=== PATIENT | male | born 1970 | race Hispanic/Latino ===

== ENCOUNTER 2019-02-22 19:29 | Emergency (ER) | payer SELFPAY ==
[2019-02-22] MEDS ORDERED: ONDANSETRON HCL 4 MG/2 ML VIAL ONE (19:58)
[2019-02-22 20:10] LABS: BASOPHILS % (AUTO) 0.3 % (0.0-5.0); HEMATOCRIT 40.8 % (42-54); LYMPHOCYTES % (AUTO) 6.8 % (21.0-51.0); MEAN CORPUSCULAR HEMOGLOBIN 30.6 pg (27.0-33.0); MEAN CORPUSCULAR HGB CONC 34.6 g/dL (32.0-36.0); MEAN CORPUSCULAR VOLUME 88.5 fL (79-99); MONOCYTES % (AUTO) 7.9 % (3.0-13.0); PLATELET COUNT (AUTO) 326 K/uL (130-400); RED BLOOD CELL COUNT(AUTO) 4.62 MIL/uL (4.50-6.20); RED CELL DISTRIBUTION WIDTH 13.2 % (11.0-15.5); WHITE BLOOD COUNT (AUTO) 14.9 K/uL (4.8-10.8)
[2019-02-22 20:28] LABS: INR 1.03 (0.85-1.15); PARTIAL THROMBOPLASTIN TIME 29.1 SEC (26.3-35.5); PROTHROMBIN TIME 10.8 SEC (9.6-11.6)
[2019-02-22 20:36] LABS: CARBON DIOXIDE 29 mmol/L (21-32); CHLORIDE 98 mmol/L (101-111); CREATININE 1.1 mg/dL (0.5-1.5); GLOMERULAR FILTR. RATE CALC 75 mL/min (>60); GLUCOSE,RANDOM 121 mg/dL (70-105); POTASSIUM 3.9 mmol/L (3.5-5.1); SODIUM SERUM 136 mmol/L (136-145); UREA NITROGEN, BLOOD 15 mg/dL (7-18)
[2019-02-22 20:40] LABS: ALANINE AMINOTRANSFERASE 25 U/L (12-78); AMYLASE 65 U/L (25-115); ASPARTATE AMINOTRANSFERASE 17 U/L (10-37); BILIRUBIN,TOTAL 0.4 mg/dL (0.2-1.0); LIPASE 108 U/L (114-286); TOTAL PROTEIN, SERUM 8.5 g/dL (6.0-8.3)
[2019-02-22 20:41] LABS: ALCOHOL, BLOOD < 3 mg/dL (0-10)
[2019-02-22] MEDS ORDERED: ACETAMINOPHEN EXTRA STRENGTH 500 MG TABLET ONE (21:19)
[2019-02-22 21:45] LABS: APPEARANCE,URINE Clear (CLEAR); BILIRUBIN,URINE Negative (NEGATIVE); COLOR,URINE Dark Yellow (YELLOW); GLUCOSE, URINE (UA) Negative (NEGATIVE); KETONES,URINE 40 mg/dL (NEGATIVE); LEUKOCYTE ESTERASE ,URINE Negative (NEGATIVE); NITRATE,URINE Negative (NEGATIVE); OCCULT BLOOD,URINE Moderate (NEGATIVE); PH,URINE 6.5 (5.0-8.0); PROTEIN,URINE POS 2+ mg/dL (NEGATIVE)
[2019-02-22 21:55] LABS: AMPHET/METH SCREEN,URINE NEGATIVE (NEGATIVE); BARBITURATE SCREEN, URINE NEGATIVE (NEGATIVE); BENZODIAZEPINES SCREEN,URINE NEGATIVE (NEGATIVE); CANNABINOID SCREEN,URINE NEGATIVE (NEGATIVE); COCAINE SCREEN,URINE NEGATIVE (NEGATIVE); OPIATE SCREEN,URINE NEGATIVE (NEGATIVE); PHENCYCLIDINE SCREEN,URINE NEGATIVE (NEGATIVE)
[2019-02-22 22:12] LABS: WBC,URINE 0-1 /HPF (0-1)
[2019-02-22 22:13] LABS: BACTERIA,URINE Rare /HPF (None Seen); MUCUS,URINE Few LPF (None Seen); SQUAMOUS EPITHELIAL CELL,UR Rare /HPF (0-2)
[2019-02-22 23:36] LABS: HEMATOCRIT 38.4 % (42-54)
[2019-02-23] MEDS ORDERED: LEVOFLOXACIN 500 MG TABLET ONE (00:02)
== END 2019-02-23 00:26 | disposition home or self-care (01) ==
LOC: EDBD 19:29 → EDH 19:29
DX: A09 Infectious gastroenteritis and colitis, unspecified (principal); K92.2 Gastrointestinal hemorrhage, unspecified; I10 Essential (primary) hypertension
CPT/HCPCS: 36415; 71045; 80053; 80305; 81001; 82150; 82270; 83605; 83690; 84484; 85014; 85018; 85025; 85610; 85730; 87040; 87804 ×2; 93005; 96361 ×2; 96374; 99285; G0480; J2405

== ENCOUNTER 2025-05-28 09:38 | Inpatient (IN) | payer BC ==
[~2025-05-28] VITALS: Ht 162.6 cm; Wt 70.3 kg
[2025-05-28 10:11] LABS: IMMATURE GRANULOCYTE ABSOLUTE 0.09 K/uL (0-1); NUCLEATED RED BLOOD CELLS 0.0 % (0.0-0.19); PLATELET COUNT (AUTO) 336 K/uL (130-400); RED BLOOD CELL COUNT(AUTO) 5.47 MIL/uL (4.50-6.20); RED CELL DISTRIBUTION WIDTH 13.6 % (11.0-15.5); WHITE BLOOD COUNT (AUTO) 11.1 K/uL (4.8-10.8)
--- NOTE | 2025-05-28 10:12 | ERN ---
General Chief Complaint: Rectal Bleed Stated Complaint: RECTAL BLEED Time Seen by MD: 09:39 Source: patient History of Present Illness Initial Comments Patient is a 54-year-old gentleman coming in with multiple complaints. Patient has been having lower abdominal discomfort that has noticed bloody stools. He describes the bloody stools as red with mucus on him. Long with this patient states he has been having some discomfort in the lower abdominal region no fever or chills no nausea no vomiting. Allergies: Coded Allergies: No Known Drug Allergies (Unverified Allergy, Unknown, 05/28/25) Past Medical History Past Medical History: Hypertension, SD Past Surgical History: None ROS Dictation CONSTITUTIONAL: No chills, no fever, no weakness, no diaphoresis, no malaise. HEAD/FACE: No signs of trauma. EENT: No eye pain, no blurred vision, no tearing, no double vision, no ear pain, no ear discharge, no nose pain, no nasal congestion, no throat pain, no throat swelling, no mouth pain. RESPIRATORY: No cough, no orthopnea, no SOB, no stridor, no wheezing. CARDIOVASCULAR: No chest pain, no edema, no palpitations, no syncope. GASTROINTESTINAL/ABDOMINAL: No abdominal pain, no constipation, no diarrhea, no nausea, no vomiting. GENITOURINARY: No abnormal discharge, no dysuria, no frequent urination, no hematuria. No complaints of pain in the genitals. MUSCULOSKELETAL: No back pain, no gout, no joint pain, no joint swelling, no muscle pain, no muscle stiffness, no neck pain. INTEGUMENTARY: No change in color, no change in hair/nails, no dryness, no lesion, no lumps, no rash. NEUROLOGICAL/PSYCH: No anxiety, not depressed, no emotional problem, no heada meghan, no numbness, no pre-existing deficit, no history of seizures, no tremors, no weakness. HEMATOLOGIC/LYMPHATIC: Not anemic, no history of blood clots, no apparent bleeding, no bruising, glands not swollen. All Systems Negative, Except as Noted. Physical Exam Physical Exam Dictation VITAL SIGNS: Reviewed. GENERAL APPEARANCE: Alert, oriented x3, no acute distress, obese. HEAD AND FACE: Non-traumatic. EYES: PERRL, pink conjunctivas, eyelid no trauma, anterior chamber clear. EARS: Pinnas intact and no signs of trauma or erythema. Ear canals clear and no discharge. TMs no erythema. NOSE: No discharge, no bleeding. OROPHARYNX: Mouth normal, teeth no caries, tongue pink. Pharynx clear, no erythema. Tonsils no exudates, no abscesses noted. Mucous membrane moist. NECK: Supple, non-tender, no thyromegaly, no masses, no JVD, no bruits. BREAST: Deferred. CHEST: No tenderness, no crepitus, no paradoxical movement, no retractions. LUNGS: Clear, well-ventilated, symmetric, no rales, no wheezing, no rhonchi, no stridor, good breath sounds bilaterally. HEART: Regular rate, regular rhythm, no murmur, no gallops. VASCULAR: No peripheral edema. ABDOMEN: Soft, positive bowel sounds, nondistended, no guarding, nontender, no rebound, no masses no hepatomegaly, no splenomegaly, no Asif's sign, no hernias. RECTAL: Deferred. GENITAL: Deferred. NEUROLOGICAL: Normal speech, gross motor function intact, gross sensory function intact. MUSCULOSKELETAL: Neck nontender, full range of motion, back nontender, full range of motion. EXTREMITIES: Nontender, full range of motion. SKIN: Color pink, dry, no turgor, no rash, no lacerations, no abrasions, no contusions. LYMPHATICS: Deferred. Results Laboratory and Microbiology Lab and Micro Result Laboratory Tests Test 05/28/25 10:00 05/28/25 11:17 05/28/25 12:15 White Blood Count 11.1 K/uL (4.8-10.8) H Red Blood Count 5.47 MIL/uL (4.50-6.20) Hemoglobin 16.5 g/dL (14.0-18.0) Hematocrit 47.2 % (42-54) Mean Corpuscular Volume 86.3 fL (79-99) Mean Corpuscular Hemoglobin 30.2 pg (27.0-33.0) Mean Corpuscular Hemoglobin Concent 35.0 g/dL (32.0-36.0) Red Cell Distribution Width 13.6 % (11.0-15.5) Platelet Count 336 K/uL (130-400) Mean Platelet Volume 10.1 fL (7.5-10.5) Immature Granulocyte % (Auto) 0.8 % (0-1) Neutrophils (%) (Auto) 70.7 % (40.0-77.0) Lymphocytes (%) (Auto) 15.8 % (21.0-51.0) L Monocytes (%) (Auto) 11.7 % (3.0-13.0) Eosinophils (%) (Auto) 0.2 % (0.0-8.0) Basophils (%) (Auto) 0.8 % (0.0-5.0) Neutrophils # (Auto) 7.8 K/uL (1.8-7.7) H Lymphocytes # (Auto) 1.8 K/uL (1.0-4.8) Monocytes # (Auto) 1.3 K/uL (0.1-1.0) H Eosinophils # (Auto) 0.02 K/uL (0.00-0.70) Basophils # (Auto) 0.09 K/uL (0.00-0.20) Absolute Immature Granulocyte (auto 0.09 K/uL (0-1) Nucleated Red Blood Cells 0.0 % (0.0-0.19) Sodium Level 137 mmol/L (136-145) Potassium Level 2.8 mmol/L (3.5-5.1) *L Chloride Level 97 mmol/L (101-111) L Carbon Dioxide Level 28 mmol/L (21-32) Blood Urea Nitrogen 42 mg/dL (7-18) H Creatinine 1.5 mg/dL (0.5-1.3) H Glomerular Filtration Rate Calc 54 mL/min (>90) Random Glucose 117 mg/dL (70-105) H Total Calcium 9.3 mg/dL (8.5-10.1) Magnesium Level 2.80 mg/dL (1.80-2.40) H Total Bilirubin 0.7 mg/dL (0.2-1.0) Aspartate Amino Transf (AST/SGOT) 29 U/L (10-37) Alanine Aminotransferase (ALT/SGPT) 36 U/L (12-78) Alkaline Phosphatase 86 U/L (50-136) Total Creatine Kinase 126 U/L (21-232) Troponin I High Sensitivity 6 ng/L (4-75) Total Protein 8.3 g/dL (6.0-8.3) Albumin 3.2 g/dL (3.5-5.0) L Lipase 513 U/L (16-77) H Urine Color YELLOW (YELLOW) Urine Appearance HAZY (CLEAR) Urine pH 6.0 (5.0-8.0) Urine Specific [place] 1.024 (1.001-1.031) Urine Protein 50 mg/dL (NEGATIVE) H Urine Glucose (UA) NEGATIVE mg/dL (NEGATIVE) Urine Ketones 40 mg/dL (NEGATIVE) H Urine Occult Blood SMALL (NEGATIVE) H Urine Nitrate NEGATIVE (NEGATIVE) Urine Bilirubin NEGATIVE mg/dL (NEGATIVE) Urine Urobilinogen 0.2 mg/dL (0.2-1.0) Urine Leukocyte Esterase NEGATIVE Sho/uL Urine RBC 2-5 /HPF (0-1) H Urine WBC 2-5 /HPF (0-1) H Urine Squamous Epithelial Cells RARE /HPF (0-2) Urine Bacteria RARE /HPF (None Seen) Stool Occult Blood POSITIVE (NEGATIVE) H Labs Reviewed?: Yes EKG/XRAY/US/CT/MRI EKG Comment 05/28/2025 time 9:37 a.m. Ventricular rate [address] wave elevation or depression MDM MDM: Differential diagnosis: Dysentery, gastroenteritis, infectious gastroenteritis Rationale: Tests considered and ordered secondary to shared decision making include: Previous outside records reviewed: Old ER visits. Risk of complication and/or morbidity or mortality of patient management: None Medications-Per medication reconciliation Need for hospitalization: Patient does meet criteria for hospitalization. Need for emergency major/minor surgery: No There are no social concerns with this patient. Prescription drug management Prescriptions will include symptomatic care Patient's prior external medical records from other ER visits were reviewed by me as indicated. Prior testing and results from previous visits were reviewed. Prior tests were taken into account with medical decision making and resource utilization, independent historian/historians were used to obtain complete [facility] history. I independently interpreted the test that were performed, results were reviewed by me and considered findings on radiology if ordered. Medical management and examination interpretation discussions were had by me with other qualified healthcare professionals as indicated for the patient's care. Patient will be admitted under the care of hospitalist group. ED Course Orders Procedure Category Date Status Time Cbc With Differential LAB 05/28/25 Complete 09:39 Comprehensive LAB 05/28/25 Complete Metabolic Panel 09:39 Troponin I High LAB 05/28/25 Complete Sensitivity 09:39 Urinalysis Profile LAB 05/28/25 Complete 09:39 Occult Blood Stool LAB 05/28/25 Complete Single Only 09:39 12 Lead Ekg Tracing- EKG 05/28/25 Complete Technical 09:39 Lactated Ringers PHA 05/28/25 Complete 1000ml (Lactated 10:00 Creatine Kinase, Total LAB 05/28/25 Complete 09:39 Lipase LAB 05/28/25 Complete 09:39 Magnesium LAB 05/28/25 Complete 11:24 Potassium Chloride PHA 05/28/25 Complete 10meq/100ml ([place] 11:30 Potassium Bicarb/Cit PHA 05/28/25 Complete Ac 25meq (K-Lyte Ta 11:30 Current Medications Medications (Trade) Dose Ordered Sig/Christian Route PRN Reason Start Time Stop Time Status Last Admin Dose Admin Lactated Ringer's 1,000 ml @ 0 mls/hr ONCE ONCE IV 05/28/25 10:00 05/28/25 10:01 DC 05/28/25 10:26 Potassium Bicarbonate (K-Lyte Tablet Eff 25 Meq Tablet.eff) 50 meq ONCE ONCE PO 05/28/25 11:30 05/28/25 11:31 DC 05/28/25 11:46 Potassium Chloride 100 ml @ 100 mls/hr ONCE ONCE IV 05/28/25 11:30 05/28/25 12:29 DC 05/28/25 11:46 Vital Signs Date Time Temp Pulse Resp B/P (MAP) Pulse Ox O2 Delivery O2 Flow Rate FiO2 05/28/25 12:36 97.3 93 16 159/96 97 Room Air* 0 05/28/25 10:02 97.3 97 16 156/10 96 Room Air* 0 05/28/25 09:45 97.3 106 16 129/105 97 Room Air* 0 05/28/25 09:43 97.3 106 16 129/105 97 Room Air 0 DX & DISP Disposition: Inpatient Decision to Admit Time: 12:54 Departure Impression: Primary Impression: Dysentery Additional Impressions: Gastroenteritis, Hypokalemia, Pancreatitis Condition: Stable Referrals: SELF,REFERRAL (PCP) BALTAZAR SELLERS MD May 28, 2025 10:11
[2025-05-28] MEDS: LACTATED RINGERS 1000ML 1,000 ML IV ONE (10:26)
[2025-05-28 10:27] LABS: ASPARTATE AMINOTRANSFERASE 29.0 U/L (10-37); CREATINE KINASE, TOTAL 126.0 U/L (21-232); CREATININE 1.5 mg/dL (0.5-1.3); GLOMERULAR FILTR. RATE CALC 54.0 mL/min (>90); GLUCOSE,RANDOM 117.0 mg/dL (70-105); SODIUM SERUM 137.0 mmol/L (136-145); TOTAL PROTEIN, SERUM 8.3 g/dL (6.0-8.3); UREA NITROGEN, BLOOD 42.0 mg/dL (7-18)
--- NOTE | 2025-05-28 10:51 | EKG ---
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
[2025-05-28 11:44] LABS: GLUCOSE, URINE (UA) NEGATIVE (NEGATIVE); LEUKOCYTE ESTERASE ,URINE NEGATIVE Leu/uL (NEGATIVE); NITRATE,URINE NEGATIVE (NEGATIVE); OCCULT BLOOD,URINE SMALL (NEGATIVE)
[2025-05-28 11:46] LABS: ADD UA MICROSCOPIC YES; APPEARANCE,URINE HAZY (CLEAR)
[2025-05-28 12:00] LABS: SQUAMOUS EPITHELIAL CELL,UR RARE /HPF (0-2)
--- NOTE | 2025-05-28 12:58 | PN ---
[facility] PROGRESS NOTE Date of Service: May 28, 2025 Time of Service: 12:58 SUBJECTIVE: [ ] REVIEW OF SYSTEMS CONSTITUTIONAL: Denies fevers, chills, or night sweats. No unintentional weight loss reported. NEUROLOGICAL: Denies headache, amaurosis fugax, motor weakness, sensory deficit, vertigo/spinning sensation, gait abnormalities, or tremors. ENT: No hearing loss, otalgia, otorrhea, rhinitis, rhinorrhea, hoarseness, or sore throat. CARDIOVASCULAR: Denies any exertional angina, dyspnea on exertion, orthopnea, paroxysmal nocturnal dyspnea, palpitations, life-threatening arrhythmias, claudication. PULMONARY: Denies any shortness of breath, cough, phlegm/sputum, hemoptysis, pleuritic chest pain. SLEEP: Denies morning headaches, daytime somnolence or napping. Denies difficulty falling asleep, staying asleep, waking from sleep. Denies knowledge of snoring. GASTROINTESTINAL: Denies any type of dysphagia to either liquids or solids. Denies nausea, vomiting, pyrosis, early satiety, abdominal pain, diarrhea, constipation, or changes in stool consistency or caliber. Denies coffee-ground emesis, hematemesis, hematochezia, or melanotic stools. GENITOURINARY: Denies frequency, urgency, nocturia, hematuria or incontinence (Storage/Irritative symptoms.) Low urinary stream, straining to void, urinary intermittency or hesitancy, splitting of the voiding stream, terminal dribbling. ENDOCRINOLOGIC: Denies polyuria, polydipsia, polyphagia or heat/cold intolerances. HEMATOLOGIC: Denies thrombophilia/previous clots, or coagulopathy/bleeding disorders. ONCOLOGIC: Denies personal history of malignancy. DERMATOLOGIC: Denies rashes or pruritus. PSYCHIATRIC: Denies any suicidal or homicidal ideation. Denies hallucinations. PHYSICAL EXAM GENERAL APPEARANCE: The patient is awake, alert, and oriented, in no acute cardiopulmonary distress. NEUROLOGICAL: Cranial nerves II-XII grossly intact. Motor is 5/5 in bilateral upper and lower extremities proximal to distal. No sensory deficits. HEENT: Face is symmetric. Pupils are equal and reactive. Extraocular movements are intact. NECK: Supple. No JVD. No thyromegaly. No submental, submandibular, pre- /postauricular, occipital or supraclavicular lymphadenopathy. CHEST: Normal chest expansion. No Telemetry. LUNGS: Absence of any rales, rhonchi or any wheezing. CARDIOVASCULAR: Regular. S1 and S2 normal. No appreciable rubs, murmurs or gallops. ABDOMEN: Soft, nontender, and nondistended. There is no rebound, voluntary guarding, or rigidity. : Deferred. No Shukla. EXTREMITIES: Non-edematous and not cyanotic. No clubbing. Good capillary refill. SKIN: No skin breakdown. Vital Signs (last 8hr) Date Time Temp Pulse Resp B/P (MAP) Pulse Ox O2 Delivery O2 Flow Rate FiO2 05/28/25 12:36 97.3 93 16 159/96 97 Room Air* 0 21 05/28/25 10:02 97.3 97 16 156/10 96 Room Air* 0 21 05/28/25 09:45 97.3 106 16 129/105 97 Room Air* 0 05/28/25 09:43 97.3 106 16 129/105 97 Room Air 0 LABS: Laboratory: Test 05/28/25 12:15 05/28/25 11:17 05/28/25 10:00 Range/Units Stool Occult Blood POSITIVE H NEGATIVE Urine Color YELLOW YELLOW Urine Appearance HAZY CLEAR Urine pH 6.0 5.0-8.0 Urine Specific [place] 1.024 1.001-1.031 Urine Protein 50 H NEGATIVE mg/dL Urine Glucose (UA) NEGATIVE NEGATIVE mg/dL Urine Ketones 40 H NEGATIVE mg/dL Urine Occult Blood SMALL H NEGATIVE Urine Nitrate NEGATIVE NEGATIVE Urine Bilirubin NEGATIVE NEGATIVE mg/dL Urine Urobilinogen 0.2 0.2-1.0 mg/dL Urine Leukocyte Esterase NEGATIVE NEGATIVE Sho/uL Urine RBC 2-5 H 0-1 /HPF Urine WBC 2-5 H 0-1 /HPF Urine Squamous Epithelial Cells RARE 0-2 /HPF Urine Bacteria RARE None Seen /HPF White Blood Count 11.1 H 4.8-10.8 K/uL Red Blood Count 5.47 4.50-6.20 MIL/uL Hemoglobin 16.5 14.0-18.0 g/dL Hematocrit 47.2 42-54 % Mean Corpuscular Volume 86.3 79-99 fL Mean Corpuscular Hemoglobin 30.2 27.0-33.0 pg Mean Corpuscular Hemoglobin Concent 35.0 32.0-36.0 g/dL Red Cell Distribution Width 13.6 11.0-15.5 % Platelet Count 336 130-400 K/uL Mean Platelet Volume 10.1 7.5-10.5 fL Immature Granulocyte % (Auto) 0.8 0-1 % Neutrophils (%) (Auto) 70.7 40.0-77.0 % Lymphocytes (%) (Auto) 15.8 L 21.0-51.0 % Monocytes (%) (Auto) 11.7 3.0-13.0 % Eosinophils (%) (Auto) 0.2 0.0-8.0 % Basophils (%) (Auto) 0.8 0.0-5.0 % Neutrophils # (Auto) 7.8 H 1.8-7.7 K/uL Lymphocytes # (Auto) 1.8 1.0-4.8 K/uL Monocytes # (Auto) 1.3 H 0.1-1.0 K/uL Eosinophils # (Auto) 0.02 0.00-0.70 K/uL Basophils # (Auto) 0.09 0.00-0.20 K/uL Absolute Immature Granulocyte (auto 0.09 0-1 K/uL Nucleated Red Blood Cells 0.0 0.0-0.19 % Sodium Level 137 136-145 mmol/L Potassium Level 2.8 *L 3.5-5.1 mmol/L Chloride Level 97 L 101-111 mmol/L Carbon Dioxide Level 28 21-32 mmol/L Blood Urea Nitrogen 42 H 7-18 mg/dL Creatinine 1.5 H 0.5-1.3 mg/dL Glomerular Filtration Rate Calc 54 >90 mL/min Random Glucose 117 H 70-105 mg/dL Total Calcium 9.3 8.5-10.1 mg/dL Magnesium Level 2.80 H 1.80-2.40 mg/dL Total Bilirubin 0.7 0.2-1.0 mg/dL Aspartate Amino Transf (AST/SGOT) 29 10-37 U/L Alanine Aminotransferase (ALT/SGPT) 36 12-78 U/L Alkaline Phosphatase 86 50-136 U/L Total Creatine Kinase 126 21-232 U/L Troponin I High Sensitivity 6 4-75 ng/L Total Protein 8.3 6.0-8.3 g/dL Albumin 3.2 L 3.5-5.0 g/dL Lipase 513 H 16-77 U/L DIAGNOSTICS / RADIOLOGY: [ ] ASSESSMENT: [ ] PLAN: [ ] CHAPARRO HINDS AGPCNP May 28, 2025 12:58
--- NOTE | 2025-05-28 13:45 | NUR ---
ASSUMED PATIENTS CARE.
--- NOTE | 2025-05-28 14:30 | NUR ---
Educated patient and family member at bedside of plan of care, labs, scheduled medication, NPO status and pain management. Both verbalized understanding.
[2025-05-28] MEDS ORDERED: MAGNESIUM 2GM PREMIX 50ML 50 ML IV PRN (15:00)
--- NOTE | 2025-05-28 15:00 | NUR ---
Mrs. Harris STRE[address] INSPECTOR for hospitalist rounded.
[2025-05-28] MEDS: 0.9%NACL 1000ML 1,000 ML IV SCH (15:11)
--- NOTE | 2025-05-28 15:13 | HP ---
[facility] HISTORY AND PHYSICAL Date of Service: May 28, 2025 Time of Service: 15:05 HISTORY OF PRESENT ILLNESS: [ This is a 54-year-old male with a past medical history of coronary artery disease and hypertension who presented to the emergency department with a chief complaint of blood in the stool, associated with nausea and vomiting. The patient reports that these symptoms began four days ago after eating at a restaurant while working out of town in [place]. He also describes a minor work-related accident during which he struck his head on a side mirror, resulting in a severe headache rated 8/10 in intensity. Additionally, he reports abdominal pain rated 7/10, localized to the epigastric region. He denies prior similar episodes. Initial vital signs revealed a temperature of 97.3F, pulse 106, respiratory rate 16, blood pressure 129/105, and oxygen saturation of 97% on room air. Laboratory data showed WBC 11.1, hemoglobin 16.5, hematocrit 47.2, platelet count 336, sodium 137, potassium 2.8, chloride 97, BUN 42, creatinine 1.5, random glucose 117, magnesium 2.8, albumin 3.2, and lipase 513. The patient was referred to the hospitalist service for further evaluation and management. ] REVIEW OF SYSTEMS CONSTITUTIONAL: Denies fevers, chills, or night sweats. No unintentional weight loss reported. NEUROLOGICAL: Denies headache, amaurosis fugax, motor weakness, sensory deficit, vertigo/spinning sensation, gait abnormalities, or tremors. ENT: No hearing loss, otalgia, otorrhea, rhinitis, rhinorrhea, hoarseness, or sore throat. CARDIOVASCULAR: Denies any exertional angina, dyspnea on exertion, orthopnea, paroxysmal nocturnal dyspnea, palpitations, life-threatening arrhythmias, claudication. PULMONARY: Denies any shortness of breath, cough, phlegm/sputum, hemoptysis, pleuritic chest pain. SLEEP: Denies morning headaches, daytime somnolence or napping. Denies difficulty falling asleep, staying asleep, waking from sleep. Denies knowledge of snoring. GASTROINTESTINAL: Denies any type of dysphagia to either liquids or solids. Denies nausea, vomiting, pyrosis, early satiety, abdominal pain, diarrhea, constipation, or changes in stool consistency or caliber. Denies coffee-ground emesis, hematemesis, hematochezia, or melanotic stools. GENITOURINARY: Denies frequency, urgency, nocturia, hematuria or incontinence (Storage/Irritative symptoms.) Low urinary stream, straining to void, urinary intermittency or hesitancy, splitting of the voiding stream, terminal dribbling. ENDOCRINOLOGIC: Denies polyuria, polydipsia, polyphagia or heat/cold intolerances. HEMATOLOGIC: Denies thrombophilia/previous clots, or coagulopathy/bleeding diso rders. ONCOLOGIC: Denies personal history of malignancy. DERMATOLOGIC: Denies rashes or pruritus. PSYCHIATRIC: Denies any suicidal or homicidal ideation. Denies hallucinations. PAST MEDICAL HISTORY: [Hypertension, CAD, two MIs ] PAST SURGICAL HISTORY: Denies any past surgical history ] PAST SOCIAL HISTORY: [Denies tobacco and illicit drug use, drinks alcohol occasionally ] FAMILY HISTORY: [Heart disease runs in his family and they had that is due to heart attack ] Coded Allergies: No Known Drug Allergies (Unverified Allergy, Unknown, 05/28/25) PHYSICAL EXAM GENERAL APPEARANCE: The patient is awake, alert, and oriented, in no acute cardiopulmonary distress. NEUROLOGICAL: Cranial nerves II-XII grossly intact. Motor is 5/5 in bilateral upper and lower extremities proximal to distal. No sensory deficits. HEENT: Face is symmetric. Pupils are equal and reactive. Extraocular movements are intact. NECK: Supple. No JVD. No thyromegaly. No submental, submandibular, pre- /postauricular, occipital or supraclavicular lymphadenopathy. CHEST: Normal chest expansion. No Telemetry. LUNGS: Absence of any rales, rhonchi or any wheezing. CARDIOVASCULAR: Regular. S1 and S2 normal. No appreciable rubs, murmurs or gallops. ABDOMEN: Soft, nontender, and nondistended. There is no rebound, voluntary guarding, or rigidity. : Deferred. No Shukla. EXTREMITIES: Non-edematous and not cyanotic. No clubbing. Good capillary r efill. SKIN: No skin breakdown. Vital Sign (Last 24 Hours) 05/28/25 12:36 Temp 97.3 Pulse 93 Resp 16 B/P (MAP) 159/96 Pulse Ox 97 O2 Delivery Room Air* O2 Flow Rate 0 FiO2 21 LABS: Laboratory: Test 05/28/25 12:15 05/28/25 11:17 05/28/25 10:00 Range/Units Stool Occult Blood POSITIVE H NEGATIVE Urine Color YELLOW YELLOW Urine Appearance HAZY CLEAR Urine pH 6.0 5.0-8.0 Urine Specific [place] 1.024 1.001-1.031 Urine Protein 50 H NEGATIVE mg/dL Urine Glucose (UA) NEGATIVE NEGATIVE mg/dL Urine Ketones 40 H NEGATIVE mg/dL Urine Occult Blood SMALL H NEGATIVE Urine Nitrate NEGATIVE NEGATIVE Urine Bilirubin NEGATIVE NEGATIVE mg/dL Urine Urobilinogen 0.2 0.2-1.0 mg/dL Urine Leukocyte Esterase NEGATIVE NEGATIVE Sho/uL Urine RBC 2-5 H 0-1 /HPF Urine WBC 2-5 H 0-1 /HPF Urine Squamous Epithelial Cells RARE 0-2 /HPF Urine Bacteria RARE None Seen /HPF White Blood Count 11.1 H 4.8-10.8 K/uL Red Blood Count 5.47 4.50-6.20 MIL/uL Hemoglobin 16.5 14.0-18.0 g/dL Hematocrit 47.2 42-54 % Mean Corpuscular Volume 86.3 79-99 fL Mean Corpuscular Hemoglobin 30.2 27.0-33.0 pg Mean Corpuscular Hemoglobin Concent 35.0 32.0-36.0 g/dL Red Cell Distribution Width 13.6 11.0-15.5 % Platelet Count 336 130-400 K/uL Mean Platelet Volume 10.1 7.5-10.5 fL Immature Granulocyte % (Auto) 0.8 0-1 % Neutrophils (%) (Auto) 70.7 40.0-77.0 % Lymphocytes (%) (Auto) 15.8 L 21.0-51.0 % Monocytes (%) (Auto) 11.7 3.0-13.0 % Eosinophils (%) (Auto) 0.2 0.0-8.0 % Basophils (%) (Auto) 0.8 0.0-5.0 % Neutrophils # (Auto) 7.8 H 1.8-7.7 K/uL Lymphocytes # (Auto) 1.8 1.0-4.8 K/uL Monocytes # (Auto) 1.3 H 0.1-1.0 K/uL Eosinophils # (Auto) 0.02 0.00-0.70 K/uL Basophils # (Auto) 0.09 0.00-0.20 K/uL Absolute Immature Granulocyte (auto 0.09 0-1 K/uL Nucleated Red Blood Cells 0.0 0.0-0.19 % Sodium Level 137 136-145 mmol/L Potassium Level 2.8 *L 3.5-5.1 mmol/L Chloride Level 97 L 101-111 mmol/L Carbon Dioxide Level 28 21-32 mmol/L Blood Urea Nitrogen 42 H 7-18 mg/dL Creatinine 1.5 H 0.5-1.3 mg/dL Glomerular Filtration Rate Calc 54 >90 mL/min Random Glucose 117 H 70-105 mg/dL Total Calcium 9.3 8.5-10.1 mg/dL Magnesium Level 2.80 H 1.80-2.40 mg/dL Total Bilirubin 0.7 0.2-1.0 mg/dL Aspartate Amino Transf (AST/SGOT) 29 10-37 U/L Alanine Aminotransferase (ALT/SGPT) 36 12-78 U/L Alkaline Phosphatase 86 50-136 U/L Total Creatine Kinase 126 21-232 U/L Troponin I High Sensitivity 6 4-75 ng/L Total Protein 8.3 6.0-8.3 g/dL Albumin 3.2 L 3.5-5.0 g/dL Lipase 513 H 16-77 U/L DIAGNOSTICS / RADIOLOGY: [ ] ASSESSMENT: [Lower Gastrointestinal bleed, POA Acute pancreatitis , POA Electrolyte abnormalities, POA Acute kidney injury , POA Recent head trauma , POA Hypertension and tachycardia , POA Leukocytosis , POA ] PLAN: [Gastrointestinal Bleed: NPO, IV fluids for hydration. Serial monitoring of hemoglobin/hematocrit. GI consult for further evaluation and possible endoscopy. Monitor for hemodynamic instability. Acute Pancreatitis (elevated lipase, epigastric pain): Supportive care: NPO, aggressive IV fluids, pain management. Monitor for complications (e.g., necrosis, infection). Trend pancreatic enzymes. Electrolyte Abnormalities: Replete potassium as indicated. Monitor and correct other electrolyte disturbances. Acute Kidney Injury (BUN/Cr elevation): Optimize volume status. Avoid nephrotoxic medications. Monitor renal function daily. Head Trauma/Headache: Serial neuro checks. Monitor for worsening symptoms (vomiting, confusion, focal deficits). We will orders had CT. Hypertension/Tachycardia: Monitor vital signs closely. Continue or adjust antihypertensive therapy as appropriate. We will have hydralazine 10 mg IV q.6 hours General: Monitor for signs of infection/sepsis. Update patient and family on ongoing evaluation and management. ADVANCED CARE PLANNING 1. Which of the following were discussed? Hospice Care - Yes / No Therapeutic options - Yes / No Advance Directives - Yes / No Other discussions - 2. Discussed with who? Patient 3. Voluntary nature of this service was explained to the patient? Yes / No 4. Amount of time spent - _20 mins 5. Reviewed by Physician? (if this service was performed by NPP) Yes / No ] ADVANCED CARE PLANNING 1. Which of the following were discussed? Hospice Care - Yes / No Therapeutic options - Yes / No Advance Directives - Yes / No Other discussions - 2. Discussed with who? 3. Voluntary nature of this service was explained to the patient? Yes / No 4. Amount of time spent - 5. Reviewed by Physician? (if this service was performed by NPP) Yes / No ATTESTATION BY PHYSICIAN I have seen and examined the patient. I reviewed the documentation, medical decision making, and treatment plan as noted by the mid-level provider above. I agree with the findings and plan of care. Darya Bender MD, [facility] May 28, 2025 15:13
--- NOTE | 2025-05-28 15:23 | NUR ---
Patient went for CT scan.
[2025-05-28] MEDS ORDERED: LISI10TA24 PO (15:28)
--- NOTE | 2025-05-28 15:28 | NUR ---
home medication reviewed, pending to be reconsiled.
--- NOTE | 2025-05-28 15:29 | NUR ---
came back from ct.
--- NOTE | 2025-05-28 16:00 | HMCIMG ---
EXAM: CT Head Without IV contrast. CLINICAL HISTORY: severe headache, pt had accident at work, hit his head on the side mirror TECHNIQUE: Axial computed tomography images of the head/brain without intravenous contrast. COMPARISON: None provided. FINDINGS: BRAIN: No evidence of acute hemorrhage. No mass lesion. No CT evidence for acute territorial infarct. No midline shift or extra-axial collections. VENTRICLES: No hydrocephalus. ORBITS: The orbits are unremarkable. SINUSES AND MASTOIDS: The paranasal sinuses and mastoid air cells are clear. BONES: No fracture. SOFT TISSUES: Unremarkable. IMPRESSION: 1. No acute intracranial findings. /[place]
--- NOTE | 2025-05-28 18:33 | NUR ---
EDUCATED PATIENT ON NPO STATUS. PATIENT KEEPS ON INSISTING ON HAVING A MEAL.
--- NOTE | 2025-05-28 19:02 | NUR ---
Educated patient on NPO status. Patient and family members need constant re education.
--- NOTE | 2025-05-29 02:23 | NUR ---
PATIENT SLEEPING, NO DISTRESS NOTED.
--- NOTE | 2025-05-29 03:43 | NUR ---
RECEIVED REPORT FROM NICOLLE SILVA RN ,AWAITING PATIENT ARRIVAL TO UNIT
[2025-05-29 03:55] VITALS: BP 157/92; PULSE 89; RESP 20; TEMP 98.4
--- NOTE | 2025-05-29 03:56 | NUR ---
PATIENT ARRIVED TO UNIT VIA STRETCHER, SELF TRANSFERED TO BED, TELEMETRY MONITORING IN PLACE. EDUCATED ON SAFETY PRECAUTIONS ,NPO DIET AND CALL TALAVERA, VOICED UNDERSTANDING.
[2025-05-29 05:55] LABS: NUCLEATED RED BLOOD CELLS 0.0 % (0.0-0.19); PLATELET COUNT (AUTO) 263.0 K/uL (130-400); RED BLOOD CELL COUNT(AUTO) 4.4 MIL/uL (4.50-6.20); RED CELL DISTRIBUTION WIDTH 13.9 % (11.0-15.5); WHITE BLOOD COUNT (AUTO) 7.4 K/uL (4.8-10.8)
[2025-05-29 06:06] LABS: ASPARTATE AMINOTRANSFERASE 25.0 U/L (10-37); CREATININE 1.1 mg/dL (0.5-1.3); GLOMERULAR FILTR. RATE CALC 79.0 mL/min (>90); GLUCOSE,RANDOM 96.0 mg/dL (70-105); SODIUM SERUM 138.0 mmol/L (136-145); TOTAL PROTEIN, SERUM 6.4 g/dL (6.0-8.3); UREA NITROGEN, BLOOD 31.0 mg/dL (7-18)
[2025-05-29 08:00] VITALS: BP 147/78; PULSE 76; RESP 18; TEMP 98.4
[2025-05-29 09:20] VITALS: O2SAT 95
--- NOTE | 2025-05-29 09:20 | NUR ---
ROUNDS PT RESTING COMFORTABLE IN BED. DENIES ANY PAIN AT THE MOMENT. STATES NO LONGER BLOODY STOOLS. BED POSITION TO LOWEST POSITION. CALL LIGHT WITH IN REACH
--- NOTE | 2025-05-29 11:49 | PN ---
[facility] PROGRESS NOTE Date of Service: May 29, 2025 Time of Service: 11:31 SUBJECTIVE: [54-year-old male for severe abdominal pain, patient with mild pancreatitis. We are pending on lipase results today. CT of the head unremarkable. We will order CT abdomen and pelvis today due to CP abdominal pain. If lipase downtrending, patient can probably be started with clear liquid diet.] REVIEW OF SYSTEMS CONSTITUTIONAL: Denies fevers, chills, or night sweats. No unintentional weight loss reported. NEUROLOGICAL: Denies headache, amaurosis fugax, motor weakness, sensory defi cit, vertigo/spinning sensation, gait abnormalities, or tremors. ENT: No hearing loss, otalgia, otorrhea, rhinitis, rhinorrhea, hoarseness, or sore throat. CARDIOVASCULAR: Denies any exertional angina, dyspnea on exertion, orthopnea, paroxysmal nocturnal dyspnea, palpitations, life-threatening arrhythmias, claudication. PULMONARY: Denies any shortness of breath, cough, phlegm/sputum, hemoptysis, pleuritic chest pain. SLEEP: Denies morning headaches, daytime somnolence or napping. Denies difficulty falling asleep, staying asleep, waking from sleep. Denies knowledge of snoring. GASTROINTESTINAL: Denies any type of dysphagia to either liquids or solids. Denies nausea, vomiting, pyrosis, early satiety, abdominal pain, diarrhea, constipation, or changes in stool consistency or caliber. Denies coffee-ground emesis, hematemesis, hematochezia, or melanotic stools. GENITOURINARY: Denies frequency, urgency, nocturia, hematuria or incontinence (Storage/Irritative symptoms.) Low urinary stream, straining to void, urinary intermittency or hesitancy, splitting of the voiding stream, terminal dribbling. ENDOCRINOLOGIC: Denies polyuria, polydipsia, polyphagia or heat/cold intolerances. HEMATOLOGIC: Denies thrombophilia/previous clots, or coagulopathy/bleeding disorders. ONCOLOGIC: Denies personal history of malignancy. DERMATOLOGIC: Denies rashes or pruritus. PSYCHIATRIC: Denies any suicidal or homicidal ideation. Denies hallucinations. PHYSICAL EXAM GENERAL APPEARANCE: The patient is awake, alert, and oriented, in no acute cardiopulmonary distress. NEUROLOGICAL: Cranial nerves II-XII grossly intact. Motor is 5/5 in bilateral upper and lower extremities proximal to distal. No sensory deficits. HEENT: Face is symmetric. Pupils are equal and reactive. Extraocular movements are intact. NECK: Supple. No JVD. No thyromegaly. No submental, submandibular, pre- /postauricular, occipital or supraclavicular lymphadenopathy. CHEST: Normal chest expansion. No Telemetry. LUNGS: Absence of any rales, rhonchi or any wheezing. CARDIOVASCULAR: Regular. S1 and S2 normal. No appreciable rubs, murmurs or gallops. ABDOMEN: Soft, nontender, and nondistended. There is no rebound, voluntary guarding, or rigidity. : Deferred. No Shukla. EXTREMITIES: Non-edematous and not cyanotic. No clubbing. Good capillary refill. SKIN: No skin breakdown. Vital Signs (last 8hr) Date Time Temp Pulse Resp B/P (MAP) Pulse Ox O2 Delivery O2 Flow Rate FiO2 05/29/25 08:00 98.4 76 18 147/78 95 Room Air 05/29/25 03:55 98.4 89 20 157/92 98 Room Air 05/29/25 03:38 98.2 84 18 140/79 98 Room Air* 0 21 LABS: Laboratory: Test 05/29/25 05:46 05/28/25 12:15 05/28/25 11:17 05/28/25 10:00 Range/Units White Blood Count 7.4 # 4.8-10.8 K/uL Red Blood Count 4.40 L 4.50-6.20 MIL/uL Hemoglobin 13.5 L 14.0-18.0 g/dL Hematocrit 38.5 L 42-54 % Mean Corpuscular Volume 87.5 79-99 fL Mean Corpuscular Hemoglobin 30.7 27.0-33.0 pg Mean Corpuscular Hemoglobin Concent 35.1 32.0-36.0 g/dL Red Cell Distribution Width 13.9 11.0-15.5 % Platelet Count 263 130-400 K/uL Mean Platelet Volume 10.2 7.5-10.5 fL Nucleated Red Blood Cells 0.0 0.0-0.19 % Sodium Level 138 136-145 mmol/L Potassium Level 4.0 3.5-5.1 mmol/L Chloride Level 104 101-111 mmol/L Carbon Dioxide Level 27 21-32 mmol/L Blood Urea Nitrogen 31 H 7-18 mg/dL Creatinine 1.1 0.5-1.3 mg/dL Glomerular Filtration Rate Calc 79 >90 mL/min Random Glucose 96 70-105 mg/dL Total Calcium 8.4 L 8.5-10.1 mg/dL Magnesium Level 2.30 1.80-2.40 mg/dL Total Bilirubin 0.7 0.2-1.0 mg/dL Aspartate Amino Transf (AST/SGOT) 25 10-37 U/L Alanine Aminotransferase (ALT/SGPT) 27 # 12-78 U/L Alkaline Phosphatase 60 # 50-136 U/L Total Protein 6.4 # 6.0-8.3 g/dL Albumin 2.4 #L 3.5-5.0 g/dL Stool Occult Blood POSITIVE H NEGATIVE Urine Color YELLOW YELLOW Urine Appearance HAZY CLEAR Urine pH 6.0 5.0-8.0 Urine Specific [place] 1.024 1.001-1.031 Urine Protein 50 H NEGATIVE mg/dL Urine Glucose (UA) NEGATIVE NEGATIVE mg/dL Urine Ketones 40 H NEGATIVE mg/dL Urine Occult Blood SMALL H NEGATIVE Urine Nitrate NEGATIVE NEGATIVE Urine Bilirubin NEGATIVE NEGATIVE mg/dL Urine Urobilinogen 0.2 0.2-1.0 mg/dL Urine Leukocyte Esterase NEGATIVE NEGATIVE Sho/uL Urine RBC 2-5 H 0-1 /HPF Urine WBC 2-5 H 0-1 /HPF Urine Squamous Epithelial Cells RARE 0-2 /HPF Urine Bacteria RARE None Seen /HPF Immature Granulocyte % (Auto) 0.8 0-1 % Neutrophils (%) (Auto) 70.7 40.0-77.0 % Lymphocytes (%) (Auto) 15.8 L 21.0-51.0 % Monocytes (%) (Auto) 11.7 3.0-13.0 % Eosinophils (%) (Auto) 0.2 0.0-8.0 % Basophils (%) (Auto) 0.8 0.0-5.0 % Neutrophils # (Auto) 7.8 H 1.8-7.7 K/uL Lymphocytes # (Auto) 1.8 1.0-4.8 K/uL Monocytes # (Auto) 1.3 H 0.1-1.0 K/uL Eosinophils # (Auto) 0.02 0.00-0.70 K/uL Basophils # (Auto) 0.09 0.00-0.20 K/uL Absolute Immature Granulocyte (auto 0.09 0-1 K/uL Total Creatine Kinase 126 21-232 U/L Troponin I High Sensitivity 6 4-75 ng/L Lipase 513 H 16-77 U/L Current Medications Medications (Trade) Dose Ordered Sig/Christian Route PRN Reason Start Time Stop Time Status Last Admin Dose Admin Acetaminophen (TYLenol 650MG SUPPOSITORY) 650 mg Q4H PRN RC TEMPERATURE GREATER THAN 101.5 05/28/25 15:00 06/27/25 14:59 Acetaminophen (TYLenol 650MG SUPPOSITORY) 650 mg Q6H PRN RC MILD PAIN (1-3) 05/28/25 15:00 06/27/25 14:59 Hydralazine HCl (APRESOLine 20MG INJ) 10 mg Q6H PRN IV ADMINISTER FOR SBP > 160 05/28/25 15:00 06/27/25 14:59 Magnesium Sulfate 50 ml @ 0 mls/hr PROTOCOL PRN IV MAGNESIUM PROTOCOL 05/28/25 15:00 06/27/25 14:59 Morphine Sulfate (morPHINE 2MG SYG) 2 mg Q4H PRN IVP SEVERE PAIN (7-10) 05/28/25 15:00 06/04/25 14:59 05/28/25 15:13 2 MG Ondansetron HCl (zoFRAN 4MG INJ) 4 mg Q6H PRN IVP NAUSEA/VOMITING 05/28/25 15:00 06/27/25 14:59 05/28/25 15:11 4 MG Potassium Chloride 100 ml @ 50 mls/hr AD PRN IV POTASSIUM PROTOCOL 05/28/25 15:00 06/27/25 14:59 05/28/25 18:55 50 MLS/HR Sodium Chloride 1,000 ml @ 100 mls/hr Q10H IV 05/28/25 15:30 06/27/25 15:29 05/29/25 02:32 100 MLS/HR DIAGNOSTICS / RADIOLOGY: [ ] ASSESSMENT: [Lower Gastrointestinal bleed, POA Acute pancreatitis , POA Electrolyte abnormalities, POA Acute kidney injury , POA Recent head trauma , POA Hypertension and tachycardia , POA Leukocytosis , POA ] PLAN: [Gastrointestinal Bleed: H&H continued to downtrend We will start clear liquid diet if lipase downtrend, and pain improve Continue IV fluids for hydration. Serial monitoring of hemoglobin/hematocrit. GI consult for further evaluation and possible endoscopy. Monitor for hemodynamic instability. Acute Pancreatitis (elevated lipase, epigastric pain): Supportive care: Clear, aggressive IV fluids, pain management. Monitor for complications (e.g., necrosis, infection). Trend pancreatic enzymes. We will order CT abdomen and pelvis Electrolyte Abnormalities: Replete potassium as indicated. Monitor and correct other electrolyte disturbances. Acute Kidney Injury (BUN/Cr elevation): Optimize volume status. Avoid nephrotoxic medications. Monitor renal function daily. Head Trauma/Headache: Serial neuro checks. Monitor for worsening symptoms (vomiting, confusion, focal deficits). CT head remarkable Hypertension/Tachycardia: Monitor vital signs closely. Continue or adjust antihypertensive therapy as appropriate. We will have hydralazine 10 mg IV q.6 hours General: Monitor for signs of infection/sepsis. Update patient and family on ongoing evaluation and management. Case seen and examined with Dr. Garcia, above plans formulated ATTESTATION BY PHYSICIAN I have seen and examined the patient. I reviewed the documentation, medical decision making, and treatment plan as noted by the mid-level provider above. I agree with the findings and plan of care. Darya Bender MD, [facility] May 29, 2025 11:49
[2025-05-29 12:00] VITALS: BP 145/91; PULSE 88; RESP 17; TEMP 98.2
[2025-05-29 16:00] VITALS: BP 154/88; PULSE 87; RESP 17; TEMP 98.1
--- NOTE | 2025-05-29 17:00 | NUR ---
D/C PLAN CM spoke to patient regarding d/c planning. Patient lives with spouse. Denies having any home services or DME. Plan to home. No needs verbalized. CM to f/u. Addendum: 05/29/25 at 1702 by MARICRUZ BECERRA CM Amended: Links added.
--- NOTE | 2025-05-29 18:45 | NUR ---
LISINOPRIL PT STATES LISINOPRIL WAS PRESCRIBED ABOUT 20YEARS AGO. NEVER RETURN BACK TO DOCTOR FOR EVALUATION.
[2025-05-29 20:00] VITALS: BP_SYST 151; BP_SYST 165; BP_DIAS 81; BP_DIAS 91; PULSE 64; PULSE 96; RESP 20; TEMP 98.1; TEMP 98.2; O2SAT 96
[2025-05-30] VITALS (7 sets, daily range): BP systolic 140–155; BP diastolic 88–98; PULSE 80–96; RESP 17–20; TEMP 98–98.4; O2SAT 97
[2025-05-30 04:50] LABS: NUCLEATED RED BLOOD CELLS 0.0 % (0.0-0.19); PLATELET COUNT (AUTO) 326.0 K/uL (130-400); RED BLOOD CELL COUNT(AUTO) 4.17 MIL/uL (4.50-6.20); RED CELL DISTRIBUTION WIDTH 14.1 % (11.0-15.5); WHITE BLOOD COUNT (AUTO) 7.7 K/uL (4.8-10.8)
[2025-05-30 05:12] LABS: ASPARTATE AMINOTRANSFERASE 19.0 U/L (10-37); CREATININE 0.9 mg/dL (0.5-1.3); GLOMERULAR FILTR. RATE CALC 100.0 mL/min (>90); GLUCOSE,RANDOM 91.0 mg/dL (70-105); SODIUM SERUM 144.0 mmol/L (136-145); TOTAL PROTEIN, SERUM 5.9 g/dL (6.0-8.3); UREA NITROGEN, BLOOD 24.0 mg/dL (7-18)
[2025-05-30] MEDS: LISINOPRIL 10 MG TABLET PO SCH (08:04)
[2025-05-30 12:37] LABS: IMMATURE GRANULOCYTE ABSOLUTE 0.06 K/uL (0-1); NUCLEATED RED BLOOD CELLS 0.0 % (0.0-0.19); PLATELET COUNT (AUTO) 375 K/uL (130-400); RED BLOOD CELL COUNT(AUTO) 4.26 MIL/uL (4.50-6.20); RED CELL DISTRIBUTION WIDTH 14.0 % (11.0-15.5); WHITE BLOOD COUNT (AUTO) 9.0 K/uL (4.8-10.8)
--- NOTE | 2025-05-30 14:04 | HMCIMG ---
EXAM: CT Abdomen and Pelvis Without IV contrast CLINICAL HISTORY: Elevated lipase, severe abdominal pain. TECHNIQUE: Axial computed tomography images of the abdomen and pelvis without intravenous contrast. CONTRAST: No IV contrast. COMPARISON: None provided. FINDINGS: LUNG BASES: Bibasilar streaky atelectasis is present. No pleural effusions are seen. LIVER: Unremarkable. GALLBLADDER AND BILE DUCTS: Dependent hyperdensity is seen within the gallbladder, which may represent sludge. No biliary ductal dilatation is evident. PANCREAS: Unremarkable. SPLEEN: Unremarkable. ADRENAL GLANDS: Unremarkable. KIDNEYS, URETERS, AND BLADDER: Nonspecific perinephric fat stranding is noted bilaterally. There is no renal/ureteric calculus or hydroureteronephrosis. The urinary bladder is incompletely distended at the time of examination, limiting the evaluation. STOMACH AND BOWEL: The stomach is underdistended. No evidence of bowel obstruction. There are multiple colonic diverticula without evidence of acute diverticulitis. There is circumferential wall thickening of the colon, predominantly involving the descending colon and sigmoid colon with surrounding fat stranding and trace fluid. APPENDIX: Normal appendix. PERITONEUM: Trace free fluid is seen in the pelvis. No free air. LYMPH NODES: There are multiple small pericolic lymph nodes, likely reactive. REPRODUCTIVE: Unremarkable as visualized. VASCULATURE: No evidence of abdominal aortic aneurysm. BONES: No aggressive-appearing osseous lesion. No acute osseous pathology is evident. Osseous degenerative changes are noted. Small bilateral inguinal and umbilical hernias are seen containing fat without incarceration. IMPRESSION: Findings suggestive of colitis, predominantly involving the descending colon and sigmoid colon, which may be of inflammatory or infectious etiology. No evidence of bowel obstruction or free air. No evidence of acute pancreatitis on this noncontrast CT. Other findings as described above. /[place]
[2025-05-30 14:30] LABS: EOSINOPHILS % (MANUAL) 4 % (1-6); LYMPHOCYTES % (MANUAL) 9 % (22-44); MAN.DIFF COMMENT-IMPRESSION MANUAL DIFFERENTIAL; MONOCYTES % (MANUAL) 6 % (2-9); PLATELET MORPHOLOGY COMMENT ADEQUATE; REACTIVE LYMPHOCYTES 3 % (0-0); SEGMENTED NEUTROPHILS % 78 % (40-70)
--- NOTE | 2025-05-30 15:14 | PN ---
[facility] PROGRESS NOTE Date of Service: May 30, 2025 Time of Service: 14:54 HPI: This is a 54-year-old male with a past medical history of coronary artery disease and hypertension who presented to the emergency department with a chief complaint of blood in the stool, associated with nausea and vomiting. The patient reports that these symptoms began four days ago after eating at a restaurant while working out of town in [place]. He also describes a minor work-related accident during which he struck his head on a side mirror, r esulting in a severe headache rated 8/10 in intensity. Additionally, he reports abdominal pain rated 7/10, localized to the epigastric region. He denies prior similar episodes. Initial vital signs revealed a temperature of 97.3F, pulse 106, respiratory rate 16, blood pressure 129/105, and oxygen saturation of 97% on room air. Laboratory data showed WBC 11.1, hemoglobin 16.5, hematocrit 47.2, platelet count 336, sodium 137, potassium 2.8, chloride 97, BUN 42, creatinine 1.5, random glucose 117, magnesium 2.8, albumin 3.2, and lipase 513. The patient was referred to the hospitalist service for further evaluation and management. SUBJECTIVE: [54-year-old male for severe abdominal pain, patient with mild pancreatitis. We are pending on lipase results today. CT of the head unremarkable. We will order CT abdomen and pelvis today due to CP abdominal pain. If lipase downtrending, patient can probably be started with clear liquid diet.] 05/30/25: Patient was evaluated at the bedside. Patient was sleeping in his bed comfortably. Patient complains of generalized abdominal bloating but no abdominal pain. The patient's lipase was 563 on 05/29/25, will order lipase tomorrow to follow the trend. Patient is passing soft stools and says he noticed blood in his stools yesterday. His white counts have been down trending to 9 from [address] abdomen shows colitis in the descending colon and sigmoid colon, probably inflammatory or infectious etiology. No evidence of acute pancreatitis. Denies nausea and vomiting. This started on clear liquid diet. Patient is currently on IV Protonix and p.o. lisinopril 10 mg. Patient is started on IV Zosyn. Patient is pending a GI consult for melena. Urine drug screen, blood ketones and ultrasound RUQ abdomen was ordered. REVIEW OF SYSTEMS CONSTITUTIONAL: Denies fevers, chills, or night sweats. No unintentional weight loss reported. NEUROLOGICAL: Denies headache, amaurosis fugax, motor weakness, sensory deficit, vertigo/spinning sensation, gait abnormalities, or tremors. ENT: No hearing loss, otalgia, otorrhea, rhinitis, rhinorrhea, hoarseness, or sore throat. CARDIOVASCULAR: Denies any exertional angina, dyspnea on exertion, orthopnea, paroxysmal nocturnal dyspnea, palpitations, life-threatening arrhythmias, claudication. PULMONARY: Denies any shortness of breath, cough, phlegm/sputum, hemoptysis, pleuritic chest pain. SLEEP: Denies morning headaches, daytime somnolence or napping. Denies difficulty falling asleep, staying asleep, waking from sleep. Denies knowledge of snoring. GASTROINTESTINAL: Patient has been on NPO since admission. Patient has generalized abdominal bloating. Denies nausea, vomiting, pyrosis, early satiety, abdominal pain, diarrhea, constipation, or changes in stool consistency or caliber. Denies coffee-ground emesis, hematemesis, hematochezia, mustard colored stools. GENITOURINARY: Denies frequency, urgency, nocturia, hematuria or incontinence (Storage/Irritative symptoms.) Low urinary stream, straining to void, urinary intermittency or hesitancy, splitting of the voiding stream, terminal dribbling. ENDOCRINOLOGIC: Denies polyuria, polydipsia, polyphagia or heat/cold intolerances. HEMATOLOGIC: Denies thrombophilia/previous clots, or coagulopathy/bleeding disorders. ONCOLOGIC: Denies personal history of malignancy. DERMATOLOGIC: Denies rashes or pruritus. PSYCHIATRIC: Denies any suicidal or homicidal ideation. Denies hallucinations. PHYSICAL EXAM GENERAL APPEARANCE: The patient is awake, alert, and oriented, in no acute cardiopulmonary distress. NEUROLOGICAL: Cranial nerves II-XII grossly intact. Motor is 5/5 in bilateral upper and lower extremities proximal to distal. No sensory deficits. HEENT: Face is symmetric. Pupils are equal and reactive. Extraocular movements are intact. NECK: Supple. No JVD. No thyromegaly. No submental, submandibular, pre- /postauricular, occipital or supraclavicular lymphadenopathy. CHEST: Normal chest expansion. No Telemetry. LUNGS: Absence of any rales, rhonchi or any wheezing. CARDIOVASCULAR: Regular. S1 and S2 normal. No appreciable rubs, murmurs or gallops. ABDOMEN: Soft, nontender, and distended. There is no rebound, voluntary guarding, or rigidity. : Deferred. No Shukla. EXTREMITIES: Non-edematous and not cyanotic. No clubbing. Good capillary refill. SKIN: No skin breakdown. Vital Signs (last 8hr) Date Time Temp Pulse Resp B/P (MAP) Pulse Ox O2 Delivery O2 Flow Rate FiO2 05/30/25 12:00 98.2 80 17 140/88 97 Room Air 21 05/30/25 08:00 97 Room Air* 0 21 05/30/25 07:47 98.1 84 18 153/92 97 Room Air 21 LABS: Laboratory: Test 05/30/25 12:31 05/30/25 04:39 05/29/25 15:50 05/29/25 05:46 Range/Units White Blood Count 9.0 4.8-10.8 K/uL Red Blood Count 4.26 L 4.50-6.20 MIL/uL Hemoglobin 12.9 L 14.0-18.0 g/dL Hematocrit 37.4 L 42-54 % Mean Corpuscular Volume 87.8 79-99 fL Mean Corpuscular Hemoglobin 30.3 27.0-33.0 pg Mean Corpuscular Hemoglobin Concent 34.5 32.0-36.0 g/dL Red Cell Distribution Width 14.0 11.0-15.5 % Platelet Count 375 130-400 K/uL Mean Platelet Volume 9.3 7.5-10.5 fL Immature Granulocyte % (Auto) 0.7 0-1 % Neutrophils (%) (Auto) 66.6 40.0-77.0 % Lymphocytes (%) (Auto) 19.0 L 21.0-51.0 % Monocytes (%) (Auto) 10.8 3.0-13.0 % Eosinophils (%) (Auto) 2.2 0.0-8.0 % Basophils (%) (Auto) 0.7 0.0-5.0 % Neutrophils # (Auto) 6.0 1.8-7.7 K/uL Lymphocytes # (Auto) 1.7 1.0-4.8 K/uL Monocytes # (Auto) 1.0 0.1-1.0 K/uL Eosinophils # (Auto) 0.20 0.00-0.70 K/uL Basophils # (Auto) 0.06 0.00-0.20 K/uL Absolute Immature Granulocyte (auto 0.06 0-1 K/uL Segmented Neutrophils % 78 H 40-70 % Lymphocytes % (Manual) 9 L 22-44 % Monocytes % (Manual) 6 2-9 % Eosinophils % (Manual) 4 1-6 % Nucleated Red Blood Cells 0.0 0.0-0.19 % Differential Comment MANUAL DIFFERENTIAL Reactive Lymphocytes 3 H 0-0 % White Cell Morphology Comment Platelet Morphology Comment ADEQUATE Red Blood Cell Morphology NORMAL Whole Blood Ketones Quantitative 3.1 H 0.0-0.6 mmol/L Sodium Level 144 136-145 mmol/L Potassium Level 3.5 3.5-5.1 mmol/L Chloride Level 108 101-111 mmol/L Carbon Dioxide Level 25 21-32 mmol/L Blood Urea Nitrogen 24 H 7-18 mg/dL Creatinine 0.9 0.5-1.3 mg/dL Glomerular Filtration Rate Calc 100 >90 mL/min Random Glucose 91 70-105 mg/dL Total Calcium 8.1 L 8.5-10.1 mg/dL Magnesium Level 2.00 1.80-2.40 mg/dL Total Bilirubin 0.8 0.2-1.0 mg/dL Aspartate Amino Transf (AST/SGOT) 19 10-37 U/L Alanine Aminotransferase (ALT/SGPT) 26 12-78 U/L Alkaline Phosphatase 57 50-136 U/L Total Protein 5.9 L 6.0-8.3 g/dL Albumin 2.2 L 3.5-5.0 g/dL Whole Blood Glucose 79 70-110 MG/DL Lipase 563 H 16-77 U/L Current Medications Medications (Trade) Dose Ordered Sig/Christian Route PRN Reason Start Time Stop Time Status Last Admin Dose Admin Acetaminophen (TYLenol 650MG SUPPOSITORY) 650 mg Q4H PRN RC TEMPERATURE GREATER THAN 101.5 05/28/25 15:00 06/27/25 14:59 Acetaminophen (TYLenol 650MG SUPPOSITORY) 650 mg Q6H PRN RC MILD PAIN (1-3) 05/28/25 15:00 06/27/25 14:59 Hydralazine HCl (APRESOLine 20MG INJ) 10 mg Q6H PRN IV ADMINISTER FOR SBP > 160 05/28/25 15:00 06/27/25 14:59 Lisinopril (Prinivil 10mg) 10 mg DAILY PO 05/30/25 09:00 06/29/25 08:59 Magnesium Sulfate 50 ml @ 0 mls/hr PROTOCOL PRN IV MAGNESIUM PROTOCOL 05/28/25 15:00 06/27/25 14:59 Morphine Sulfate (morPHINE 2MG SYG) 2 mg Q4H PRN IVP SEVERE PAIN (7-10) 05/28/25 15:00 06/04/25 14:59 05/28/25 15:13 2 MG Ondansetron HCl (zoFRAN 4MG INJ) 4 mg Q6H PRN IVP NAUSEA/VOMITING 05/28/25 15:00 06/27/25 14:59 05/28/25 15:11 4 MG Pantoprazole Sodium (PROTonix 40MG INJ) 40 mg DAILY IVP 05/31/25 09:00 06/30/25 08:59 Potassium Chloride 100 ml @ 50 mls/hr AD PRN IV POTASSIUM PROTOCOL 05/28/25 15:00 06/27/25 14:59 05/28/25 18:55 50 MLS/HR Sodium Chloride 1,000 ml @ 100 mls/hr Q10H IV 05/28/25 15:30 06/27/25 15:29 05/29/25 21:38 100 MLS/HR DIAGNOSTICS / RADIOLOGY: [ ] PATIENT: NU ADORNO MR#: [id number] : 1970 SEX: M AGE: 54 LOCATION: 3AH ORDER [id number] STATUS: ADM IN REPORT#: [id number] SERVICE 1135 REASON: elevated lipase, severe abdominal pain ORDERING PHYSICIAN: CHAPARRO HINDS PROCEDURE: ABD PEL WO - CT ABDOMEN/PELVIS W/O CONTRAST EXAM: CT Abdomen and Pelvis Without IV contrast CLINICAL HISTORY: Elevated lipase, severe abdominal pain. TECHNIQUE: Axial computed tomography images of the abdomen and pelvis without intravenous contrast. CONTRAST: No IV contrast. COMPARISON: None provided. FINDINGS: LUNG BASES: Bibasilar streaky atelectasis is present. No pleural effusions are seen. LIVER: Unremarkable. GALLBLADDER AND BILE DUCTS: Dependent hyperdensity is seen within the gallbladder, which may represent sludge. No biliary ductal dilatation is evident. PANCREAS: Unremarkable. SPLEEN: Unremarkable. ADRENAL GLANDS: Unremarkable. KIDNEYS, URETERS, AND BLADDER: Nonspecific perinephric fat stranding is noted bilaterally. There is no renal/ureteric calculus or hydroureteronephrosis. The urinary bladder is incompletely distended at the time of examination, limiting the evaluation. STOMACH AND BOWEL: The stomach is underdistended. No evidence of bowel obstruction. There are multiple colonic diverticula without evidence of acute diverticulitis. There is circumferential wall thickening of the colon, predominantly involving the descending colon and sigmoid colon with surrounding fat stranding and trace fluid. APPENDIX: Normal appendix. PERITONEUM: Trace free fluid is seen in the pelvis. No free air. LYMPH NODES: There are multiple small pericolic lymph nodes, likely reactive. REPRODUCTIVE: Unremarkable as visualized. VASCULATURE: No evidence of abdominal aortic aneurysm. BONES: No aggressive-appearing osseous lesion. No acute osseous pathology is evident. Osseous degenerative changes are noted. Small bilateral inguinal and umbilical hernias are seen containing fat without incarceration. IMPRESSION: Findings suggestive of colitis, predominantly involving the descending colon and sigmoid colon, which may be of inflammatory or infectious etiology. No evidence of bowel obstruction or free air. No evidence of acute pancreatitis on this noncontrast CT. Other findings as described above. /[place] DICTATED BY: MIKAEL LAMB MD DATE: 05/30/251503 ELECTRONICALLY SIGNED BY: MIKAEL LAMB MD DATE: 05/30/25 1501 ASSESSMENT: [Lower Gastrointestinal bleed, POA Acute pancreatitis , POA Electrolyte abnormalities, POA Acute kidney injury , POA Recent head trauma , POA Hypertension and tachycardia , POA Leukocytosis , POA ] Acute colitis, descending colon, POA PLAN: [Gastrointestinal Bleed: H&H continued to downtrend Started Clear Liquid diet. Continue IV fluids for hydration. Serial monitoring of hemoglobin/hematocrit. GI consult for further evaluation and possible endoscopy/colonoscopy Monitor for hemodynamic instability. Acute Colitis, descending colon: Patient CT showed evidence of colitis in descending and sigmoid colon Patient started on IV Zosyn 3.375 g. Bowel rest was recommended. Acute Pancreatitis (elevated lipase, epigastric pain): Supportive care: Clear, aggressive IV fluids, pain management. Monitor for complications (e.g., necrosis, infection). Trend pancreatic enzymes. CT abdomen and pelvis showed no evidence of pancreatitis, however showed biliary sludge in the gall bladder. Will order US RUQ abdomen. Electrolyte Abnormalities: Replete potassium as indicated. Monitor and correct other electrolyte disturbances. Acute Kidney Injury (BUN/Cr elevation): Optimize volume status. Avoid nephrotoxic medications. Monitor renal function daily. Serial neuro checks. Monitor for worsening symptoms (vomiting, confusion, focal deficits). CT head unremarkable Hypertension/Tachycardia: Monitor vital signs closely. Continue or adjust antihypertensive therapy as appropriate. We will have hydralazine 10 mg IV q.6 hours General: Monitor for signs of infection/sepsis. Update patient and family on ongoing evaluation and management. ATTESTATION BY PHYSICIAN I have seen and examined the patient. I reviewed the documentation, medical decision making, and treatment plan as noted by the resident provider above. I agree with the findings and plan of care. Rayo Dimas MD, HARSHAVARDHA MD May 30, 2025 15:13 ELVIN MCKINNEY MD May 30, 2025 16:33
[2025-05-30] MEDS: ZOSYN 3.375GM +NS 50ML IV SCH (17:08)
[2025-05-30 22:06] LABS: AMPHET/METH SCREEN,URINE NEGATIVE (NEGATIVE); BARBITURATE SCREEN, URINE NEGATIVE (NEGATIVE); CANNABINOID SCREEN,URINE NEGATIVE (NEGATIVE); COCAINE SCREEN,URINE NEGATIVE (NEGATIVE)
[2025-05-31] VITALS (16 sets, daily range): BP systolic 112–170; BP diastolic 74–96; PULSE 80–99; RESP 16–20; TEMP 97.8–98.6; O2SAT 96
[2025-05-31 04:05] LABS: IMMATURE GRANULOCYTE ABSOLUTE 0.13 K/uL (0-1); NUCLEATED RED BLOOD CELLS 0.0 % (0.0-0.19); PLATELET COUNT (AUTO) 411 K/uL (130-400); RED BLOOD CELL COUNT(AUTO) 4.16 MIL/uL (4.50-6.20); RED CELL DISTRIBUTION WIDTH 13.5 % (11.0-15.5); WHITE BLOOD COUNT (AUTO) 11.9 K/uL (4.8-10.8)
[2025-05-31 04:16] LABS: INR 1.07 (0.85-1.15)
[2025-05-31 04:32] LABS: CREATININE 0.8 mg/dL (0.5-1.3); GLOMERULAR FILTR. RATE CALC 104.0 mL/min (>90); GLUCOSE,RANDOM 102.0 mg/dL (70-105); LACTATE DEHYDROGENASE 185.0 U/L (81-234); LDL DIRECT 77.0 mg/dL (0-99); SODIUM SERUM 141.0 mmol/L (136-145); UREA NITROGEN, BLOOD 13.0 mg/dL (7-18)
--- NOTE | 2025-05-31 08:42 | CONS ---
GASTROENTEROLOGY CONSULTATION CHIEF COMPLAINT/REASON FOR CONSULTATION: Epigastric pain, nausea, vomiting and hematochezia plus acute blood loss anemia. HISTORY OF PRESENT ILLNESS: The patient is a 54-year-old male with history of hypertension, coronary artery disease and prior myocardial infarction, who was admitted with epigastric pain, nausea, vomiting and who also reports hematochezia and acute blood loss anemia on labs, for which GI evaluation and management are sought. According to the patient, he has been having dull epigastric pain on and off for about 1 week. The pain has been nonradiating, worse with food intake but unchanged with bowel movements and usually lasts about 5 minutes or less. The patient also reports weight loss of 10 pounds, unintentional over the last 1 week. He admits to episodes of nausea and vomiting, which started 1 week ago but denies any hematemesis, melena, diarrhea, constipation, heartburn, or history of PUD. Denies any NSAID use or abdominal trauma. He has no family history of colon cancer, stomach cancer or IBD. He denies family history of esophageal disorder or liver disease too. ALLERGIES: No known drug allergies. PAST MEDICAL/SURGICAL HISTORY: See above, also history of hypertension, coronary artery disease, myocardial infarction, but no DM, CVA, seizure disorder, PUD or asthma. MEDICATIONS: Pantoprazole, IV Zosyn, lisinopril, magnesium sulfate, potassium chloride, hydralazine, acetaminophen. SOCIAL HISTORY: The patient denies alcohol use, tobacco use, or illicit drug use. FAMILY HISTORY: No family history of colon cancer, stomach cancer, esophageal disorders or IBD. REVIEW OF SYSTEMS: CONSTITUTIONAL: The patient reports abdominal pain, nausea, vomiting and hematochezia, subsided since hospitalization. He denies fever or chills. DERMATOLOGY: Denies any rash, bruises, or excessive dry skin. OPHTHALMOLOGY: No recent vision change, eye pain, periorbital swelling, redness, or drainage. ENT: No ear pain, tinnitus, hearing loss, nasal congestion, rhinorrhea, sore throat or voice change. RESPIRATORY: No wheeze, rhinorrhea, epistaxis, chest congestion, or cough. CARDIOVASCULAR: No chest pain, palpitations, or leg swelling. GENITOURINARY: No dysuria, hematuria, urinary urgency or frequency. GASTROINTESTINAL: Epigastric pain, nausea, vomiting, and hematochezia has subsided now. He denies any heartburn, constipation or melena. MUSCULOSKELETAL: No joint pain, joint swelling, or backache. NEUROLOGY: No tingling, numbness, vision changes, or hearing loss. PSYCHIATRY: No history of depression, anxiety, suicidal plan or ideation. ENDOCRINOLOGY: No diabetes, thyroid disease, or hyperlipidemia. HEMATOLOGY/LYMPHATICS: Positive for hematochezia, but no melena and he denied easy bruising, swollen, or palpable lymph nodes. PHYSICAL EXAMINATION: GENERAL: The patient is a 54-year-old male who appears stated age, seen resting in bed, in no acute respiratory distress. VITAL SIGNS: Blood pressure 146/94, heart rate 89, respirations 20, temperature 98.2 degrees Fahrenheit. SKIN: Warm and dry with multiple tattoos over forearms, chest and abdomen. HEENT: The patient's head is normocephalic, atraumatic. Pupils reactive. Sclerae nonicteric. Oral mucosa was moist. No obvious lesion. No blood noted. Nasal mucosa showed no epistaxis, septal deviation, or perforation. NECK: No obvious masses. No jugular venous distention. No lymphadenopathy or thyromegaly. LUNGS: Clear to auscultation bilaterally. HEART: S1, S2. No obvious murmurs, rubs, or gallops auscultated. ABDOMEN: Mildly protuberant, soft with active bowel sounds. No hepatomegaly or masses. Tenderness noted in left lower abdominal quadrant and right lower abdominal quadrant. No rebound or guarding noted. EXTREMITIES: No cyanosis, clubbing or edema. RECTAL: Deferred. LABORATORY DATA: WBC 9, hemoglobin 12.9, hematocrit 37.4, MCV of 87, platelet count of 375. Two days ago, hemoglobin was 16.5, hematocrit 47.2, WBC 11.1, platelet count 336. Serum chemistry revealed sodium of 144, potassium 3.5, chloride of 108, CO2 of 25, BUN of 24, creatinine of 0.9, GFR of 100, random glucose 91, total calcium 8.1, magnesium level of 2, total bilirubin of 0.8, AST 19, ALT 26, alkaline phosphatase 57, total protein of 5.9, albumin of 2.2, lipase level of 563 one day ago. Urine tox screen negative for opiates, barbiturates, phencyclidine, amphetamine, benzodiazepine, cocaine, and marijuana. DIAGNOSTIC DATA: CT scan of the abdomen and pelvis done one day ago showed findings suggestive of colitis, predominantly involving the descending colon and sigmoid colon suggestive of inflammatory or infectious etiologies. Stomach is ____ distended. No bowel obstruction noted. Multiple diverticula noted without evidence of diverticulitis. Circumferential wall thickening of the colon, suggestive of possible colitis as noted above. peritoneum and appendix were within normal limits. Kidney, ureteral, bladder also. Pancreas, adrenal glands were unremarkable. Lung bases show bibasilar ____ atelectasis. No pleural effusion. IMPRESSION: * Gastric pain, nausea, vomiting, acute anemia suggests possible peptic ulcer bleed versus erosive gastritis, erosive duodenitis, erosive esophagitis. Upper GI angiodysplastic lesion or Dieulafoy's lesion, may cause acute anemia and may present with hematochezia, but would not expect to give epigastric pain. * Hematochezia and abnormal abdominal imaging with circumferential thickening of descending and sigmoid colon, suggests most likely colitis, which may be infectious or inflammatory. Colon polyps, colon ulcers, colon CA cannot be excluded, less likely with this presentation. * Acute anemia. likely pathologies as listed above. * Coronary artery disease. * History of myocardial infarction. * History of hypertension. * Weight loss, most likely from poor p.o. intake related to illness as above, but malignancy cannot be excluded too. PLAN: * Recommend EGD for further evaluation and management. * Strict adherence to anti-reflux measures. * Recommend a colonoscopy also. * Continue to monitor CBC and transfuse PRBC as needed for hemoglobin of 7. * Follow up with a.m. labs. The above labs and imaging studies have been reviewed and discussed with the patient and the physical findings on examination also discussed with the patient and he verbalized understanding of these. The management plan as listed above has been discussed with the patient also. The patient agrees with management plan and wants to have EGD as inpatient, but would rather have colonoscopy as outpatient. All questions have been answered. Dr. Bender, thank you for allowing me to participate in the care of this patient. TID: [id number] RECEIPT: [id number] cc: Darya Bender MD
--- NOTE | 2025-05-31 12:40 | NUR ---
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
[2025-05-31] MEDS ORDERED: ZOSYN 3.375GM +NS 50ML IV SCH (14:30)
--- NOTE | 2025-05-31 15:01 | PN ---
[facility] PROGRESS NOTE Date of Service: May 31, 2025 Time of Service: 14:38 HPI: This is a 54-year-old male with a past medical history of coronary artery disease and hypertension who presented to the emergency department with a chief complaint of blood in the stool, associated with nausea and vomiting. The patient reports that these symptoms began four days ago after eating at a restaurant while working out of town in [place]. He also describes a minor work-related accident during which he struck his head on a side mirror, r esulting in a severe headache rated 8/10 in intensity. Additionally, he reports abdominal pain rated 7/10, localized to the epigastric region. He denies prior similar episodes. Initial vital signs revealed a temperature of 97.3F, pulse 106, respiratory rate 16, blood pressure 129/105, and oxygen saturation of 97% on room air. Laboratory data showed WBC 11.1, hemoglobin 16.5, hematocrit 47.2, platelet count 336, sodium 137, potassium 2.8, chloride 97, BUN 42, creatinine 1.5, random glucose 117, magnesium 2.8, albumin 3.2, and lipase 513. The patient was referred to the hospitalist service for further evaluation and management. SUBJECTIVE: [54-year-old male for severe abdominal pain, patient with mild pancreatitis. We are pending on lipase results today. CT of the head unremarkable. We will order CT abdomen and pelvis today due to CP abdominal pain. If lipase downtrending, patient can probably be started with clear liquid diet.] 05/30/25: Patient was evaluated at the bedside. Patient was sleeping in his bed comfortably. Patient complains of generalized abdominal bloating but no abdominal pain. The patient's lipase was 563 on 05/29/25, will order lipase tomorrow to follow the trend. Patient is passing soft stools and says he noticed blood in his stools yesterday. His white counts have been down trending to 9 from [address] abdomen shows colitis in the descending colon and sigmoid colon, probably inflammatory or infectious etiology. No evidence of acute pancreatitis. Denies nausea and vomiting. This started on clear liquid diet. Patient is currently on IV Protonix and p.o. lisinopril 10 mg. Patient is started on IV Zosyn. Patient is pending a GI consult for melena. Urine drug screen, blood ketones and ultrasound RUQ abdomen was ordered. 05/31/25: Patient was evaluated at the bedside where he was sleeping comfortably. Patient does not complain of abdominal pain, nausea, vomiting, or diarrhea. Patient has had bowel movements and he says he did not notice blood since the last 2 days. Lipase levels have come down, 212 from 513 on admission. Lipid panel is normal. Pending right upper quadrant ultrasound results, preliminary report shows normal size of gallbladder and common bile duct. Patient was taken for upper GI endoscopy today by Dr. Win. Patient is continu ing to take Zosyn (day 2) and Protonix 40 mg. Patient underwent upper GI endoscopy, which showed evidence of acute gastritis, LA grade C reflux esophagitis without any evidence of bleeding. Patient will be discharged home on ciprofloxacin and Protonix. REVIEW OF SYSTEMS CONSTITUTIONAL: Denies fevers, chills, or night sweats. No unintentional weight loss reported. NEUROLOGICAL: Denies headache, amaurosis fugax, motor weakness, sensory def icit, vertigo/spinning sensation, gait abnormalities, or tremors. ENT: No hearing loss, otalgia, otorrhea, rhinitis, rhinorrhea, hoarseness, or sore throat. CARDIOVASCULAR: Denies any exertional angina, dyspnea on exertion, orthopnea, paroxysmal nocturnal dyspnea, palpitations, life-threatening arrhythmias, claudication. PULMONARY: Denies any shortness of breath, cough, phlegm/sputum, hemoptysis, pleuritic chest pain. SLEEP: Denies morning headaches, daytime somnolence or napping. Denies difficulty falling asleep, staying asleep, waking from sleep. Denies knowledge of snoring. GASTROINTESTINAL: Patient has been on NPO since admission. Abdominal bloating has subsided. Denies nausea, vomiting, pyrosis, early satiety, abdominal pain, diarrhea, constipation, or changes in stool consistency or caliber. Denies coffee-ground emesis, hematemesis, hematochezia. GENITOURINARY: Denies frequency, urgency, nocturia, hematuria or incontinence (Storage/Irritative symptoms.) Low urinary stream, straining to void, urinary intermittency or hesitancy, splitting of the voiding stream, terminal dribbling. ENDOCRINOLOGIC: Denies polyuria, polydipsia, polyphagia or heat/cold intole rances. HEMATOLOGIC: Denies thrombophilia/previous clots, or coagulopathy/bleeding disorders. ONCOLOGIC: Denies personal history of malignancy. DERMATOLOGIC: Denies rashes or pruritus. PSYCHIATRIC: Denies any suicidal or homicidal ideation. Denies hallucinations. PHYSICAL EXAM GENERAL APPEARANCE: The patient is awake, alert, and oriented, in no acute cardiopulmonary distress. NEUROLOGICAL: Cranial nerves II-XII grossly intact. Motor is 5/5 in bilateral upper and lower extremities proximal to distal. No sensory deficits. HEENT: Face is symmetric. Pupils are equal and reactive. Extraocular movements are intact. NECK: Supple. No JVD. No thyromegaly. No submental, submandibular, pre- /postauricular, occipital or supraclavicular lymphadenopathy. CHEST: Normal chest expansion. No Telemetry. LUNGS: Absence of any rales, rhonchi or any wheezing. CARDIOVASCULAR: Regular. S1 and S2 normal. No appreciable rubs, murmurs or gallops. ABDOMEN: Soft, nontender, and nondistended. There is no rebound, voluntary guarding, or rigidity. : Deferred. No Shukla. EXTREMITIES: Non-edematous and not cyanotic. No clubbing. Good capillary refill. SKIN: No skin breakdown. Vital Signs (last 8hr) Date Time Temp Pulse Resp B/P (MAP) Pulse Ox O2 Delivery O2 Flow Rate FiO2 05/31/25 11:28 98.6 83 18 143/92 97 Room Air 21 05/31/25 08:15 96 Room Air* 0 21 05/31/25 08:00 98.4 92 18 137/83 96 Room Air 21 LABS: Laboratory: Test 05/31/25 03:54 05/30/25 21:45 05/30/25 12:31 05/30/25 04:39 Range/Units White Blood Count 11.9 #H 4.8-10.8 K/uL Red Blood Count 4.16 L 4.50-6.20 MIL/uL Hemoglobin 12.6 L 14.0-18.0 g/dL Hematocrit 36.0 L 42-54 % Mean Corpuscular Volume 86.5 79-99 fL Mean Corpuscular Hemoglobin 30.3 27.0-33.0 pg Mean Corpuscular Hemoglobin Concent 35.0 32.0-36.0 g/dL Red Cell Distribution Width 13.5 11.0-15.5 % Platelet Count 411 H 130-400 K/uL Mean Platelet Volume 9.3 7.5-10.5 fL Immature Granulocyte % (Auto) 1.1 H 0-1 % Neutrophils (%) (Auto) 70.1 40.0-77.0 % Lymphocytes (%) (Auto) 15.2 L 21.0-51.0 % Monocytes (%) (Auto) 10.3 3.0-13.0 % Eosinophils (%) (Auto) 2.7 0.0-8.0 % Basophils (%) (Auto) 0.6 0.0-5.0 % Neutrophils # (Auto) 8.3 H 1.8-7.7 K/uL Lymphocytes # (Auto) 1.8 1.0-4.8 K/uL Monocytes # (Auto) 1.2 H 0.1-1.0 K/uL Eosinophils # (Auto) 0.32 0.00-0.70 K/uL Basophils # (Auto) 0.07 0.00-0.20 K/uL Absolute Immature Granulocyte (auto 0.13 0-1 K/uL Nucleated Red Blood Cells 0.0 0.0-0.19 % Prothrombin Time 11.3 9.6-11.6 SEC Prothromb Time International Ratio 1.07 0.85-1.15 Activated Partial Thromboplast Time 27.8 26.3-35.5 SEC Sodium Level 141 136-145 mmol/L Potassium Level 3.1 L 3.5-5.1 mmol/L Chloride Level 105 101-111 mmol/L Carbon Dioxide Level 28 21-32 mmol/L Blood Urea Nitrogen 13 7-18 mg/dL Creatinine 0.8 0.5-1.3 mg/dL Glomerular Filtration Rate Calc 104 >90 mL/min Random Glucose 102 70-105 mg/dL Total Calcium 8.0 L 8.5-10.1 mg/dL Lactate Dehydrogenase 185 81-234 U/L C-Reactive Protein, Quantitative 108.30 H 0.5-3.0 mg/L Triglycerides Level 115 30-200 mg/dL Cholesterol Level 113 <200 mg/dL LDL Cholesterol 77 0-99 mg/dL HDL Cholesterol 27 L 29-71 mg/dL Lipase 212 H 16-77 U/L Procalcitonin 0.34 0.05-0.5 ng/mL Urine Opiates Screen NEGATIVE NEGATIVE Urine Barbiturates Screen NEGATIVE NEGATIVE Urine Phencyclidine Screen NEGATIVE NEGATIVE Urine Amphetamines Screen NEGATIVE NEGATIVE Urine Benzodiazepines Screen NEGATIVE NEGATIVE Urine Cocaine Screen NEGATIVE NEGATIVE Urine Marijuana (THC) Screen NEGATIVE NEGATIVE Segmented Neutrophils % 78 H 40-70 % Lymphocytes % (Manual) 9 L 22-44 % Monocytes % (Manual) 6 2-9 % Eosinophils % (Manual) 4 1-6 % Differential Comment MANUAL DIFFERENTIAL Reactive Lymphocytes 3 H 0-0 % White Cell Morphology Comment Platelet Morphology Comment ADEQUATE Red Blood Cell Morphology NORMAL Whole Blood Ketones Quantitative 3.1 H 0.0-0.6 mmol/L Magnesium Level 2.00 1.80-2.40 mg/dL Total Bilirubin 0.8 0.2-1.0 mg/dL Aspartate Amino Transf (AST/SGOT) 19 10-37 U/L Alanine Aminotransferase (ALT/SGPT) 26 12-78 U/L Alkaline Phosphatase 57 50-136 U/L Total Protein 5.9 L 6.0-8.3 g/dL Albumin 2.2 L 3.5-5.0 g/dL Test 05/29/25 15:50 Range/Units Whole Blood Glucose 79 70-110 MG/DL Current Medications Medications (Trade) Dose Ordered Sig/Christian Route PRN Reason Start Time Stop Time Status Last Admin Dose Admin Acetaminophen (TYLenol 650MG SUPPOSITORY) 650 mg Q4H PRN RC TEMPERATURE GREATER THAN 101.5 05/28/25 15:00 06/27/25 14:59 Acetaminophen (TYLenol 650MG SUPPOSITORY) 650 mg Q6H PRN RC MILD PAIN (1-3) 05/28/25 15:00 06/27/25 14:59 Hydralazine HCl (APRESOLine 20MG INJ) 10 mg Q6H PRN IV ADMINISTER FOR SBP > 160 05/28/25 15:00 06/27/25 14:59 Lisinopril (Prinivil 10mg) 10 mg DAILY PO 05/30/25 09:00 06/29/25 08:59 Magnesium Sulfate 50 ml @ 0 mls/hr PROTOCOL PRN IV MAGNESIUM PROTOCOL 05/28/25 15:00 06/27/25 14:59 Morphine Sulfate (morPHINE 2MG SYG) 2 mg Q4H PRN IVP SEVERE PAIN (7-10) 05/28/25 15:00 06/04/25 14:59 05/28/25 15:13 2 MG Ondansetron HCl (zoFRAN 4MG INJ) 4 mg Q6H PRN IVP NAUSEA/VOMITING 05/28/25 15:00 06/27/25 14:59 05/28/25 15:11 4 MG Pantoprazole Sodium (PROTonix 40MG INJ) 40 mg DAILY IVP 05/31/25 09:00 06/30/25 08:59 05/31/25 08:41 40 MG Piperacillin Sod/ Tazobactam Sod (Zosyn 3.375gm+NS 50ml) 3.375 gm Q8H IV 05/30/25 16:00 05/31/25 08:17 DC 05/30/25 23:41 3.375 GM Piperacillin Sod/ Tazobactam Sod (Zosyn 3.375gm+NS 50ml) 3.375 gm Q8H IV 05/31/25 14:30 06/10/25 14:29 Potassium Chloride 100 ml @ 50 mls/hr AD PRN IV POTASSIUM PROTOCOL 05/28/25 15:00 06/27/25 14:59 05/31/25 06:46 50 MLS/HR Potassium Chloride 100 ml @ 50 mls/hr AD PRN IV POTASSIUM PROTOCOL 05/31/25 08:00 05/31/25 07:47 DC Sodium Chloride 1,000 ml @ 100 mls/hr Q10H IV 05/28/25 15:30 06/27/25 15:29 05/31/25 04:12 100 MLS/HR DIAGNOSTICS / RADIOLOGY: [ ] ASSESSMENT: [Lower Gastrointestinal bleed, POA Acute pancreatitis , POA Electrolyte abnormalities, POA Acute kidney injury , POA Recent head trauma , POA Hypertension and tachycardia , POA Leukocytosis , POA ] Acute colitis, descending colon, POA PLAN: [Gastrointestinal Bleed: H&H continued to downtrend Started Clear Liquid diet. Continue IV fluids for hydration. Serial monitoring of hemoglobin/hematocrit. Upper GI endoscopy was with biopsy is performed today, showed acute gastritis and grade C reflux esophagitis without any bleeding. Account Relationship Manager recommended the patient be discharged home on Protonix 40 mg p.o. for 8 weeks. Patient advised to follow up with GI on outpatient basis in 2 weeks and schedule a colonoscopy. Acute Colitis, descending colon: Patient CT showed evidence of colitis in descending and sigmoid colon. Patient started on IV Zosyn 3.375 g. Bowel rest was recommended. Patient will be discharged home on p.o. ciprofloxacin 500 mg. Acute Pancreatitis (elevated lipase, epigastric pain): Supportive care: Clear, aggressive IV fluids, pain management. Monitor for complications (e.g., necrosis, infection). Trend pancreatic enzymes. CT abdomen and pelvis showed no evidence of pancreatitis, however showed biliary sludge in the gall bladder. Abdominal right UQ ultrasound performed, awaiting results. Preliminary report showed normal-size of gallbladder and CBD. Electrolyte Abnormalities: Replete potassium as indicated. Monitor and correct other electrolyte disturbances. Acute Kidney Injury (BUN/Cr elevation): Optimize volume status. Avoid nephrotoxic medications. Monitor renal function daily. Serial neuro checks. Monitor for worsening symptoms (vomiting, confusion, focal deficits). CT head unremarkable Hypertension/Tachycardia: Monitor vital signs closely. Continue or adjust antihypertensive therapy as appropriate. We will have hydralazine 10 mg IV q.6 hours General: Monitor for signs of infection/sepsis. Update patient and family on ongoing evaluation and management. ATTESTATION BY PHYSICIAN I have seen and examined the patient. I reviewed the documentation, medical decision making, and treatment plan as noted by the resident provider above. I agree with the findings and plan of care. LUDY PENA MD, HARSHAVARDHA MD May 31, 2025 15:01
--- NOTE | 2025-05-31 15:24 | NUR ---
S/P EGD Patient back in room. Ambulated to bathroom. Aox4. Asking about discharge, explained post-procedure expectations and need for discharge orders. - notified primary Dr. Whitehead about EGD results.
--- NOTE | 2025-05-31 16:08 | DS ---
Discharge Summary Hospital Course Summary: This is a 54-year-old male with a past medical history of coronary artery disease and hypertension who presented to the emergency department on 05/28/25 with a chief complaint of blood in the stool, associated with nausea and vomiting. The patient reports that these symptoms began four days ago after eating at a restaurant while working out of town in [place]. He also describes a minor work-related accident during which he struck his head on a side mirror, resulting in a severe headache rated 8/10 in intensity. Additionally, he reports abdominal pain rated 7/10, localized to the epigastric region. He denies prior similar episodes. Initial vital signs revealed a temperature of 97.3F, pulse 106, respiratory rate 16, blood pressure 129/105, and oxygen saturation of 97% on room air. Laboratory data showed WBC 11.1, hemoglobin 16.5, hematocrit 47.2, platelet count 336, sodium 137, potassium 2.8, chloride 97, BUN 42, creatinine 1.5, random glucose 117, magnesium 2.8, albumin 3.2, and lipase 513. The patient was referred to the hospitalist service for further evaluation and management. Patient was put on NPO, given aggressive IV fluids, and pain management. And GI consult was placed and also for endoscopy. Patient was monitored for serial lipase levels. The patient's lipase was 563 on 05/29/25, which down trended to 212 today. Patient was passing soft stools and says he noticed blood in his stools for a day while in the hospital, and did not have hematochezia since then. His white counts have been down trending to 9 from [address] abdomen showed colitis in the descending colon and sigmoid colon, probably inflammatory or infectious etiology. No evidence of acute pancreatitis was found. Patient denied nausea and vomiting and thus started on clear liquid diet. Patient is currently on IV Protonix 40 mg and p.o. lisinopril 10 mg. Patient was started on IV Zosyn. His right upper quadrant abdominal ultrasound is pending results, preliminary report shows gallbladder size 3 mm, common bile duct 4 mm. No evidence of choledocholithiasis. Today an upper GI endoscopy was done that showed acute gastritis, LA grade C reflux esophagitis without evidence of bleeding. Patient was advised to follow with GI on outpatient basis in 2 weeks. Patient advised to schedule a colonoscopy on outpatient basis. Patient will be discharged home on ciprofloxacin p.o. and Protonix 40 mg for 8 weeks. Glaze Grinder(s): GI physician Dr. Win Procedure(s): HEAD CT PATIENT: NU ADORNO MR#: [id number] : 1970 SEX: M AGE: 54 LOCATION: [facility] ORDER 1502 STATUS: ADM IN REPORT#: [id number] SERVICE [id number] REASON: severe headache, pt had accident at work, hit his head on the side mirror ORDERING PHYSICIAN: CHAPARRO HINDS PROCEDURE: HEAD WO - CT HEAD/BRAIN W/O CONTRAST EXAM: CT Head Without IV contrast. CLINICAL HISTORY: severe headache, pt had accident at work, hit his head on the side mirror TECHNIQUE: Axial computed tomography images of the head/brain without intravenous contrast. COMPARISON: None provided. FINDINGS: BRAIN: No evidence of acute hemorrhage. No mass lesion. No CT evidence for acute territorial infarct. No midline shift or extra-axial collections. VENTRICLES: No hydrocephalus. ORBITS: The orbits are unremarkable. SINUSES AND MASTOIDS: The paranasal sinuses and mastoid air cells are clear. BONES: No fracture. SOFT TISSUES: Unremarkable. IMPRESSION: 1. No acute intracranial findings. /[place] DICTATED BY: JUAN DURAN MD DATE: 05/28/251658 ELECTRONICALLY SIGNED BY: JUAN DURAN MD DATE: 05/28/251658 CT ABDOMEN/PELVIS PATIENT: NU ADORNO MR#: [id number] : 1970 SEX: M AGE: 54 LOCATION: [facility]AH ORDER 1136 STATUS: ADM IN REPORT#: [id number] SERVICE 1135 REASON: elevated lipase, severe abdominal pain ORDERING PHYSICIAN: CHAPARRO HINDS PROCEDURE: ABD PEL WO - CT ABDOMEN/PELVIS W/O CONTRAST EXAM: CT Abdomen and Pelvis Without IV contrast CLINICAL HISTORY: Elevated lipase, severe abdominal pain. TECHNIQUE: Axial computed tomography images of the abdomen and pelvis without intravenous contrast. CONTRAST: No IV contrast. COMPARISON: None provided. FINDINGS: LUNG BASES: Bibasilar streaky atelectasis is present. No pleural effusions are seen. LIVER: Unremarkable. GALLBLADDER AND BILE DUCTS: Dependent hyperdensity is seen within the gallbladder, which may represent sludge. No biliary ductal dilatation is evident. PANCREAS: Unremarkable. SPLEEN: Unremarkable. ADRENAL GLANDS: Unremarkable. KIDNEYS, URETERS, AND BLADDER: Nonspecific perinephric fat stranding is noted bilaterally. There is no renal/ureteric calculus or hydroureteronephrosis. The urinary bladder is incompletely distended at the time of examination, limiting the evaluation. STOMACH AND BOWEL: The stomach is underdistended. No evidence of bowel obstruction. There are multiple colonic diverticula without evidence of acute diverticulitis. There is circumferential wall thickening of the colon, predominantly involving the descending colon and sigmoid colon with surrounding fat stranding and trace fluid. APPENDIX: Normal appendix. PERITONEUM: Trace free fluid is seen in the pelvis. No free air. LYMPH NODES: There are multiple small pericolic lymph nodes, likely reactive. REPRODUCTIVE: Unremarkable as visualized. VASCULATURE: No evidence of abdominal aortic aneurysm. BONES: No aggressive-appearing osseous lesion. No acute osseous pathology is evident. Osseous degenerative changes are noted. Small bilateral inguinal and umbilical hernias are seen containing fat without incarceration. IMPRESSION: Findings suggestive of colitis, predominantly involving the descending colon and sigmoid colon, which may be of inflammatory or infectious etiology. No evidence of bowel obstruction or free air. No evidence of acute pancreatitis on this noncontrast CT. Other findings as described above. /[place] DICTATED BY: MIKAEL LAMB MD DATE: 05/30/25 1509 ELECTRONICALLY SIGNED BY: MIKAEL LAMB MD DATE: 05/30/25 2375 Upper GI endoscopy Impression: * Acute gastritis, biopsied * LA grade C esophagitis with no bleeding, biopsied * Normal duodenal bulb and 2nd portion of the duodenum, biopsied Recommendations * Patient to be discharged home on p.o. Protonix 40 mg for 8 weeks. * Patient advised to follow up in 2 weeks on outpatient basis. * Patient advised to schedule a colonoscopy outpatient basis. Assessment/Plan: ASSESSMENT: [Lower Gastrointestinal bleed, secondary to acute gastritis Acute pancreatitis, resolving Acute kidney injury , resolved Recent head trauma , no acute intracranial abnormalities Hypertension and tachycardia , stable Leukocytosis , resolved Acute colitis, descending colon, resolving Discharge Instructions: ADMISSION DATE : 05/28/2025 DISCHARGE DATE: 05/31/2025 DISPOSITION : Home CONDITION : Stable WELCOME WAGON HOST/HOSTESS(S) : Dr. Win, Cement Car Dumper FOLLOW UP APPOINTMENT(S) : f/u with PCP in one 2-3 days, f/u with Dr. Win in two weeks. PROCEDURES: Upper GI endoscopy IMAGING (S) : report attached to summary MICROBIOLOGY : report attached to summary ACTIVITY : ad petey HOME MEDICATIONS : Continued Home Medications: Active Scripts Ciprofloxacin HCl (Ciprofloxacin HCl) 500 Mg Tablet, 1 TAB PO BID for 7 Days, #14 TAB 0 Refills Prov:ELVIN MCKINNEY MD 05/31/25 Pantoprazole Sodium (Protonix) 40 Mg Ectab, 1 TAB PO AM for 30 Days, #30 TAB 0 Refills Prov:ELVIN MCKINNEY MD 05/31/25 Discontinued Reported Medications Lisinopril (Lisinopril) 10 Mg Tablet, 1 TAB PO DAILY for 30 Days, #30 TAB 0 Refills 05/28/25 New Medications: Ciprofloxacin HCl (Ciprofloxacin HCl) 500 Mg Tablet 1 TAB PO BID for 7 Days, #14 TAB 0 Refills Pantoprazole Sodium (Protonix) 40 Mg Ectab 1 TAB PO AM for 30 Days, #30 TAB 0 Refills Discontinued Medications: Lisinopril (Lisinopril) 10 Mg Tablet 1 TAB PO DAILY for 30 Days, #30 TAB 0 Refills Time spent arranging discharge: 1-30 minutes ATTESTATION BY PHYSICIAN I have seen and examined the patient. I reviewed the documentation, medical decision making, and treatment plan as noted by the resident provider above. I agree with the findings and plan of care. Rayo iDmas MD, HARSHAVARDHA MD May 31, 2025 16:08
[2025-05-31] MEDS ORDERED: PANT40TA55 PO (16:09)
[2025-05-31] MEDS ORDERED: CIPR-514 PO (16:09)
--- NOTE | 2025-05-31 17:41 | NUR ---
DISCHARGE Patient cleared for discharge at this time by Dr. Whitehead. Patient provided dc instructions including follow up and medication instructions. Patient verbalized understanding and all questions answered. IV removed. Patient provided with dc paperwork. Patient discharged home with all belongings; mother and sister at bedside at time of discharge.
--- NOTE | 2025-06-01 06:04 | HMCIMG ---
EXAMINATION: ULTRASOUND OF THE ABDOMEN (LIMITED) WITH COLOR DOPPLER. CLINICAL HISTORY: Epigastric pain. COMPARISON: CT abdomen and pelvis without contrast dated 05/29/2025. TECHNIQUE: Real-time grayscale ultrasound images of the abdomen. In addition, color Doppler is medically necessary to perform in order to evaluate vascularity and blood flow. FINDINGS: Liver: Normal in caliber, the right hepatic lobe measures 14.7 cm in the craniocaudal dimension. There is increased echogenicity of the hepatic parenchyma. There is no intrahepatic biliary ductal dilatation. There is normal spectral Doppler of the main portal vein. There is an area of focal fat sparing in the right lobe, adjacent to the gallbladder. Gallbladder: Within normal limits with normal wall thickness (0.26 cm). No hyperemia or pericholecystic free fluid. There is no cholelithiasis. There is sludge. Common bile duct is normal in caliber, measuring 0.36 cm. Pancreas: Obscured by overlying bowel gas The right kidney is normal in caliber, the right kidney measures 10.4 x 4.9 x 4.5 cm in craniocaudal, AP, and transverse dimensions respectively. There is normal renal cortical thickness, and cortical echogenicity. There is no renal calculus or hydronephrosis. IMPRESSION: Hepatic steatosis with focal area of fat sparing. Gallbladder sludge. /[place]
== END 2025-05-31 17:40 | disposition home or self-care (01) | DRG 377 ==
LOC: EDH 09:38 → EDHIP 12:54 → 3AH 05-29 03:42
PROVIDERS: ADMIT Hospitalist; ATTEND Hospitalist
PROC: 0DB98ZX Excision of Duodenum, Via Natural or Artificial Opening Endoscopic, Diagnostic (ICD-10-PCS; principal; 2025-05-31)
PROC: 0DB78ZX Excision of Stomach, Pylorus, Via Natural or Artificial Opening Endoscopic, Diagnostic (ICD-10-PCS; 2025-05-31)
PROC: 0DB68ZX Excision of Stomach, Via Natural or Artificial Opening Endoscopic, Diagnostic (ICD-10-PCS; 2025-05-31)
PROC: 0DB38ZX Excision of Lower Esophagus, Via Natural or Artificial Opening Endoscopic, Diagnostic (ICD-10-PCS; 2025-05-31)
DX: K29.01 Acute gastritis with bleeding (principal); K85.90 Acute pancreatitis without necrosis or infection, unspecified; N17.9 Acute kidney failure, unspecified; K21.01 Gastro-esophageal reflux disease with esophagitis, with bleeding; I10 Essential (primary) hypertension; E87.8 Other disorders of electrolyte and fluid balance, not elsewhere classified; K52.9 Noninfective gastroenteritis and colitis, unspecified; D64.9 Anemia, unspecified; E87.6 Hypokalemia; I25.10 Atherosclerotic heart disease of native coronary artery without angina pectoris; I25.2 Old myocardial infarction; Z82.49 Family history of ischemic heart disease and other diseases of the circulatory system
CPT/HCPCS: 36415; 43239; 70450; 74176; 76705; 80048; 80053; 80061; 80305; 81001; 82010; 82270; 82550; 82948; 83010; 83615; 83690; 83735; 84145; 84484; 85025; 85027; 85610; 85730; 86140; 93005; 99285; A4606; G0378; J2270; J2405; J2470; J2543; J2704; J3480; J7030; J7120; A4215; A4222; A4223; A4620; J3490